=== PATIENT | female | born 1960 | race Caucasian/White ===

== ENCOUNTER 2024-08-14 09:00 | Outpatient (RCR) | payer MEDICARE, MEDICAID, SELFPAY ==
[2024-08-05 16:31] LABS: Basophils # (Auto) 0.1 Thou/mm3 (0.0-0.2); Basophils % (Auto) 1 % (0-2.5); Eosinophils # (Auto) 0.4 Thou/mm3 (0.0-0.5); Eosinophils % (Auto) 3 % (0-10); Hematocrit 30.9 % (36.0-46.0); Hemoglobin 10.2 g/dL (12.0-16.0); Immature Granulocytes % (Auto) 7 % (0-0); Immature Granulocytes Auto 0.87 Thou/mm3 (0.00-0.00); Lymphocytes # (Auto) 0.7 Thou/mm3 (1.0-4.8); Lymphocytes % (Auto) 5 % (10-50); Mean Corpuscular Hemoglobin 29.7 pg (25.0-35.0); Mean Corpuscular Volume 90 fL (80-100); Monocytes # (Auto) 0.7 Thou/mm3 (0.0-0.8); Monocytes % (Auto) 5 % (0-12); Neutrophils # (Auto) 10.3 Thou/mm3 (1.8-7.7); Neutrophils % (Auto) 79 % (37-80); Nucleated Red Blood Cell # 0.02 Thou/mm3 (0.00-0.00); Nucleated Red Blood Cell % 0 /100 WBC (0); Platelet Count 169 Thou/mm3 (140-440); RDW Standard Deviation 49.1 fL (36.4-46.3); Red Blood Count 3.44 Miln/mm3 (4.00-5.20); White Blood Count 12.9 Thou/mm3 (3.6-11.0)
[2024-08-05 17:16] LABS: Alanine Aminotransferase < 7 U/L (10-49); Albumin, Serum 4.5 gm/dL (3.4-4.8); Albumin/Globulin Ratio 2.3 (1.2-2.2); Alkaline Phosphatase 95 U/L (46-116); Anion Gap 8 (7-16); Aspartate Amino Transferase 12 U/L (0-34); BUN/Creatinine Ratio 14 Ratio (12-20); Bilirubin,Total 0.2 mg/dL (0.3-1.2); Blood Urea Nitrogen 11 mg/dL (9-23); Calcium 9.6 mg/dL (8.3-10.6); Calcium (Corrected) 9.6 mg/dL (8.5-10.1); Carbon Dioxide 24.2 mMol/L (20.0-31.0); Chloride 104 mMol/L (98-107); Creatinine (Component) 0.8 mg/dL (0.6-1.3); Glucose 98 mg/dL (74-106); Osmolality,Calculated 271 (275-295); Potassium 3.5 mMol/L (3.4-5.1); Sodium 136 mMol/L (136-145); Total Protein 6.5 gm/dL (5.7-8.2); eGFR > 60 See Note
[2024-08-13 14:45] LABS: Basophils # (Auto) 0.1 Thou/mm3 (0.0-0.2); Basophils % (Auto) 1 % (0-2.5); Eosinophils # (Auto) 0.2 Thou/mm3 (0.0-0.5); Eosinophils % (Auto) 3 % (0-10); Hematocrit 32.7 % (36.0-46.0); Hemoglobin 11.2 g/dL (12.0-16.0); Immature Granulocytes % (Auto) 1 % (0-0); Immature Granulocytes Auto 0.05 Thou/mm3 (0.00-0.00); Lymphocytes # (Auto) 0.5 Thou/mm3 (1.0-4.8); Lymphocytes % (Auto) 7 % (10-50); Mean Corpuscular HGB Conc 34.3 g/dl (31.0-37.0); Mean Corpuscular Volume 88 fL (80-100); Monocytes # (Auto) 0.7 Thou/mm3 (0.0-0.8); Monocytes % (Auto) 9 % (0-12); Neutrophils % (Auto) 81 % (37-80); Nucleated Red Blood Cell % 0 /100 WBC (0); Platelet Count 226 Thou/mm3 (140-440); RDW Standard Deviation 49.4 fL (36.4-46.3); Red Blood Count 3.73 Miln/mm3 (4.00-5.20); White Blood Count 7.4 Thou/mm3 (3.6-11.0)
[2024-08-13 15:13] LABS: Ferritin 112 ng/mL (7.3-270.7); Total Iron Binding Capacity 286 mcg/dL (250-425)
[2024-08-13 15:18] LABS: Alanine Aminotransferase 10 U/L (10-49); Albumin, Serum 4.5 gm/dL (3.4-4.8); Alkaline Phosphatase 69 U/L (46-116); Anion Gap 6 (7-16); Aspartate Amino Transferase 14 U/L (0-34); BUN/Creatinine Ratio 26 Ratio (12-20); Bilirubin,Total 0.3 mg/dL (0.3-1.2); Blood Urea Nitrogen 18 mg/dL (9-23); Calcium 9.7 mg/dL (8.3-10.6); Calcium (Corrected) 9.7 mg/dL (8.5-10.1); Carbon Dioxide 28.1 mMol/L (20.0-31.0); Chloride 104 mMol/L (98-107); Creatinine (Component) 0.7 mg/dL (0.6-1.3); Globulin 2.3 gm/dL (2.3-3.5); Glucose 125 mg/dL (74-106); Osmolality,Calculated 278 (275-295); Potassium 3.9 mMol/L (3.4-5.1); Sodium 138 mMol/L (136-145); Total Protein 6.8 gm/dL (5.7-8.2); eGFR > 60 See Note
[2024-08-13 15:22] LABS: Iron 56 mcg/dL (50-170); Percent Iron Saturation 19 % (20-55); Unsaturated Iron Binding 230 (225-295)
[2024-08-13 15:31] LABS: Folate 22.09 ng/mL (>5.38); Vitamin B12 > 2000 pg/mL (211-911)
== END 2024-08-22 23:59 | disposition home or self-care (01) ==
LOC: SCTC 09:00
PROVIDERS: PCP Nurse Practitioner Family; Referring Provider Nurse Practitioner Family; Visit Provider Internal Medicine Hematology & Oncology
DX: Z51.11 Encounter for antineoplastic chemotherapy (principal); C54.1 Malignant neoplasm of endometrium; C78.02 Secondary malignant neoplasm of left lung; C78.01 Secondary malignant neoplasm of right lung; Z90.710 Acquired absence of both cervix and uterus; Z90.722 Acquired absence of ovaries, bilateral
CPT/HCPCS: 36591; 71046; 80053; 82607; 82728; 82746; 83540; 83550; 85025; 86304; 96367; 96372; 96409; 99212; A4216; J1100; J1453; J1642; J2405; J2506; J3490; J9000; Q5111; G0463

== ENCOUNTER → 2024-09-02 | Outpatient (CLI) | payer MEDICARE, MEDICAID, SELFPAY ==
--- NOTE | 2024-09-02 14:30 | ECHO_ITS ---
Transthoracic Echo Report Ht (in): 63 Wt (lb): 112 Exam Location: Echo Lab Status: Preadmit Retail Merchandising Manager: Yenni Dover Indications: Procedure Performed: BP: / HR: Rhythm: Sinus Technical Quality: Fair MEASUREMENTS (Male / Female) Normal Values 2D ECHO LV Diastolic Diameter PLAX 3.4 cm 4.2 - 5.9 / 3.9 - 5.3 cm LV Systolic Diameter PLAX 2.6 cm IVS Diastolic Thickness 1.0 cm 0.6 - 1.0 / 0.6 - 0.9 cm LVPW Diastolic Thickness 0.8 cm 0.6 - 1.0 / 0.6 - 0.9 cm LV Relative Wall Thickness 0.5 LVOT Diameter 1.6 cm LA Volume Index 27.4 cm?/m? 16 - 28 cm?/m? Ascending Aorta Diameter 3.3 cm M-MODE Aortic Root Diameter MM 2.7 cm LA Systolic Diameter MM 3.2 cm LA Ao Ratio MM 1.2 AV Cusp Separation MM 1.7 cm DOPPLER AV Peak Velocity 136.0 cm/s AV Peak Gradient 7.4 mmHg AV Mean Gradient 4.0 mmHg AV Velocity Time Integral 29.2 cm LVOT Peak Velocity 95.3 cm/s LVOT Peak Gradient 3.6 mmHg LVOT Velocity Time Integral 19.3 cm AV Area Cont Eq vti 1.3 cm? AV Area Cont Eq pk 1.4 cm? MV Peak Velocity 83.2 cm/s MV Peak Gradient 2.8 mmHg MV Mean Velocity 52.5 cm/s MV Mean Gradient 1.0 mmHg MV Area PHT 3.1 cm? Mitral E Point Velocity 66.9 cm/s Mitral A Point Velocity 70.3 cm/s Mitral E to A Ratio 1.0 LV E' Lateral Velocity 9.4 cm/s Mitral E to LV E' Lateral Ratio 7.1 LV E' Septal Velocity 4.3 cm/s Mitral E to LV E' Septal Ratio 15.4 TR Peak Velocity 160.0 cm/s TR Peak Gradient 10.2 mmHg FINDINGS Left Ventricle Normal left ventricular size, wall thickness, systolic function with no obvious regional wall motion abnormalities. The ejection fraction is visually estimated at 55-60 %. Right Ventricle The right ventricle is normal in size and systolic function. The estimated right ventricular systoli c pressure, 15mmHg. RAP 5. Left Atrium The left atrium is normal by two-dimensional, color flow and Doppler imaging with no structural abnormalities, no thrombus formation present. Right Atrium The right atrium is normal by two-dimensional imaging, color flow and Doppler imaging with no struct ural abnormalities, no thrombus formation present. Atrial Septum The interatrial septum appears normal with no evidence of a shunt. Aorta The aorta is normal by two-dimensional, color flow and Doppler interrogation. Mitral Valve The mitral valve is normal by two-dimensional, color flow and Doppler interrogation. There is trace mitral valve regurgitation. Aortic Valve The aortic valve is trileaflet and normal by two-dimensional, color flow and Doppler interrogation. There is trace aortic valve regurgitation. Tricuspid Valve The tricuspid valve is normal by two-dimensional, color flow and Doppler interrogation. There is tra ce tricuspid valve regurgitation. Pulmonic Valve The pulmonic valve is normal by two-dimensional, color flow and Doppler interrogation. There is trac e pulmonic valve regurgitation. Vessels The pulmonary artery appears normal. The inferior vena cava pulmonary and hepatic veins appear alvin l. Pericardium The pericardium is normal by two-dimensional imaging. There is no significant pericardial effusion. CONCLUSIONS Indication: Malignant neoplasm corpus uteri Normal LV size and function. Stgae I diastolic dysfunction. Estimated EF 55-60% Normal RV size and function Trace MR,AI, TR, PI. Anthony Jeffers (Electronically Signed) Final Date: 03 September 2024 05:52
== END | disposition home or self-care (01) ==
PROVIDERS: PCP Student in an Organized Health Care Education/Training Program; Referring Provider Internal Medicine Hematology & Oncology; Visit Provider Internal Medicine Hematology & Oncology
DX: I08.3 Combined rheumatic disorders of mitral, aortic and tricuspid valves (principal); C54.9 Malignant neoplasm of corpus uteri, unspecified
CPT/HCPCS: 93306

== ENCOUNTER → 2024-09-08 | Outpatient (CLI) | payer MEDICARE, MEDICAID, SELFPAY ==
--- NOTE | 2024-09-08 12:01 | XR_ITS ---
Examination: PA lateral chest 2 views TECHNIQUE: Upright PA lateral chest 2 views Exam date and time: September 08, 2024 1244 hours Comparison August 06, 2024 INDICATIONS: Diagnosis malignant neoplasm uterus FINDINGS: Numerous bilateral poorly defined pulmonary nodular densities Normal heart size Right internal jugular Port-A-Cath tip satisfactory position IMPRESSION: Pulmonary nodular metastatic disease Consider repeat CT chest without contrast to compare with the April 30, 2024 exam
== END | disposition home or self-care (01) ==
PROVIDERS: PCP Student in an Organized Health Care Education/Training Program; Referring Provider Radiology Therapeutic Radiology; Visit Provider Radiology Therapeutic Radiology
DX: C78.00 Secondary malignant neoplasm of unspecified lung (principal); C54.9 Malignant neoplasm of corpus uteri, unspecified; C79.51 Secondary malignant neoplasm of bone
CPT/HCPCS: 71046

== ENCOUNTER 2024-09-22 10:09 | Outpatient (RCR) | payer MEDICARE, MEDICAID, SELFPAY ==
[2024-09-02 15:30] LABS: Basophils # (Auto) 0.1 Thou/mm3 (0.0-0.2); Basophils % (Auto) 1 % (0-2.5); Eosinophils # (Auto) 0.3 Thou/mm3 (0.0-0.5); Eosinophils % (Auto) 4 % (0-10); Hematocrit 30.5 % (36.0-46.0); Hemoglobin 10.5 g/dL (12.0-16.0); Immature Granulocytes % (Auto) 1 % (0-0); Immature Granulocytes Auto 0.06 Thou/mm3 (0.00-0.00); Lymphocytes # (Auto) 0.7 Thou/mm3 (1.0-4.8); Lymphocytes % (Auto) 9 % (10-50); Mean Corpuscular HGB Conc 34.4 g/dl (31.0-37.0); Mean Corpuscular Hemoglobin 30.2 pg (25.0-35.0); Mean Corpuscular Volume 88 fL (80-100); Monocytes # (Auto) 0.7 Thou/mm3 (0.0-0.8); Monocytes % (Auto) 10 % (0-12); Neutrophils # (Auto) 5.4 Thou/mm3 (1.8-7.7); Neutrophils % (Auto) 76 % (37-80); Nucleated Red Blood Cell % 0 /100 WBC (0); Platelet Count 205 Thou/mm3 (140-440); RDW Standard Deviation 50.9 fL (36.4-46.3); Red Blood Count 3.48 Miln/mm3 (4.00-5.20); White Blood Count 7.1 Thou/mm3 (3.6-11.0)
[2024-09-02 16:00] LABS: Alanine Aminotransferase 8 U/L (10-49); Albumin, Serum 4.8 gm/dL (3.4-4.8); Albumin/Globulin Ratio 2.4 (1.2-2.2); Alkaline Phosphatase 73 U/L (46-116); Anion Gap 8 (7-16); Aspartate Amino Transferase 11 U/L (0-34); BUN/Creatinine Ratio 18 Ratio (12-20); Bilirubin,Total 0.3 mg/dL (0.3-1.2); Blood Urea Nitrogen 14 mg/dL (9-23); Carbon Dioxide 27.4 mMol/L (20.0-31.0); Chloride 100 mMol/L (98-107); Creatinine (Component) 0.8 mg/dL (0.6-1.3); Glucose 85 mg/dL (74-106); Osmolality,Calculated 269 (275-295); Sodium 135 mMol/L (136-145); Total Protein 6.8 gm/dL (5.7-8.2); eGFR > 60 See Note
[2024-09-22 10:39] LABS: Basophils # (Auto) 0.1 Thou/mm3 (0.0-0.2); Basophils % (Auto) 1 % (0-2.5); Eosinophils # (Auto) 0.3 Thou/mm3 (0.0-0.5); Eosinophils % (Auto) 5 % (0-10); Hematocrit 31.6 % (36.0-46.0); Hemoglobin 10.8 g/dL (12.0-16.0); Immature Granulocytes % (Auto) 1 % (0-0); Immature Granulocytes Auto 0.03 Thou/mm3 (0.00-0.00); Lymphocytes # (Auto) 0.5 Thou/mm3 (1.0-4.8); Lymphocytes % (Auto) 8 % (10-50); Mean Corpuscular HGB Conc 34.2 g/dl (31.0-37.0); Mean Corpuscular Hemoglobin 30.7 pg (25.0-35.0); Mean Corpuscular Volume 90 fL (80-100); Monocytes # (Auto) 0.6 Thou/mm3 (0.0-0.8); Monocytes % (Auto) 10 % (0-12); Neutrophils # (Auto) 4.5 Thou/mm3 (1.8-7.7); Neutrophils % (Auto) 76 % (37-80); Nucleated Red Blood Cell % 0 /100 WBC (0); Platelet Count 201 Thou/mm3 (140-440); RDW Standard Deviation 50.8 fL (36.4-46.3); Red Blood Count 3.52 Miln/mm3 (4.00-5.20); White Blood Count 5.9 Thou/mm3 (3.6-11.0)
[2024-09-22 11:12] LABS: Alanine Aminotransferase < 7 U/L (10-49); Albumin, Serum 4.8 gm/dL (3.4-4.8); Albumin/Globulin Ratio 2.3 (1.2-2.2); Alkaline Phosphatase 77 U/L (46-116); Anion Gap 8 (7-16); Aspartate Amino Transferase 12 U/L (0-34); BUN/Creatinine Ratio 23 Ratio (12-20); Bilirubin,Total 0.4 mg/dL (0.3-1.2); Blood Urea Nitrogen 18 mg/dL (9-23); Calcium 10.2 mg/dL (8.3-10.6); Calcium (Corrected) 10.2 mg/dL (8.5-10.1); Carbon Dioxide 27.7 mMol/L (20.0-31.0); Chloride 102 mMol/L (98-107); Creatinine (Component) 0.8 mg/dL (0.6-1.3); Globulin 2.1 gm/dL (2.3-3.5); Glucose 92 mg/dL (74-106); Osmolality,Calculated 277 (275-295); Potassium 3.7 mMol/L (3.4-5.1); Sodium 138 mMol/L (136-145); Total Protein 6.9 gm/dL (5.7-8.2); eGFR > 60 See Note
== END 2024-09-22 23:59 | disposition home or self-care (01) ==
LOC: SCTC 10:09
PROVIDERS: Internal Medicine Hematology & Oncology; PCP Physician Assistant; Referring Provider Physician Assistant; Visit Provider Radiology Therapeutic Radiology
DX: Z51.11 Encounter for antineoplastic chemotherapy (principal); C54.1 Malignant neoplasm of endometrium; C78.02 Secondary malignant neoplasm of left lung; C79.51 Secondary malignant neoplasm of bone; Z92.3 Personal history of irradiation; R05.9 Cough, unspecified
CPT/HCPCS: 36591; 80053; 85025; 86304; 96367; 96372; 96413; 99213; A4216; J1100; J1453; J1642; J2405; J2506; J3490; J7040; J9000; G0463

== ENCOUNTER 2024-10-07 13:28 | Outpatient (RCR) | payer MEDICARE, MEDICAID, SELFPAY ==
[2024-10-06 14:54] LABS: Basophils # (Auto) 0.1 Thou/mm3 (0.0-0.2); Basophils % (Auto) 1 % (0-2.5); Eosinophils # (Auto) 0.3 Thou/mm3 (0.0-0.5); Eosinophils % (Auto) 3 % (0-10); Hematocrit 29.5 % (36.0-46.0); Immature Granulocytes % (Auto) 6 % (0-0); Lymphocytes # (Auto) 0.5 Thou/mm3 (1.0-4.8); Lymphocytes % (Auto) 4 % (10-50); Mean Corpuscular HGB Conc 33.9 g/dl (31.0-37.0); Mean Corpuscular Hemoglobin 30.6 pg (25.0-35.0); Mean Corpuscular Volume 90 fL (80-100); Monocytes # (Auto) 0.9 Thou/mm3 (0.0-0.8); Monocytes % (Auto) 8 % (0-12); Neutrophils # (Auto) 9.6 Thou/mm3 (1.8-7.7); Neutrophils % (Auto) 79 % (37-80); Nucleated Red Blood Cell # 0.02 Thou/mm3 (0.00-0.00); Nucleated Red Blood Cell % 0 /100 WBC (0); Platelet Count 127 Thou/mm3 (140-440); RDW Standard Deviation 49.6 fL (36.4-46.3); Red Blood Count 3.27 Miln/mm3 (4.00-5.20); White Blood Count 12.1 Thou/mm3 (3.6-11.0)
[2024-10-06 18:28] LABS: Albumin, Serum 4.8 gm/dL (3.4-4.8); Albumin/Globulin Ratio 2.3 (1.2-2.2); Alkaline Phosphatase 98 U/L (46-116); Anion Gap 9 (7-16); Aspartate Amino Transferase 12 U/L (0-34); BUN/Creatinine Ratio 19 Ratio (12-20); Bilirubin,Total 0.3 mg/dL (0.3-1.2); Blood Urea Nitrogen 15 mg/dL (9-23); Calcium 9.7 mg/dL (8.3-10.6); Calcium (Corrected) 9.7 mg/dL (8.5-10.1); Chloride 101 mMol/L (98-107); Creatinine (Component) 0.8 mg/dL (0.6-1.3); Globulin 2.1 gm/dL (2.3-3.5); Glucose 88 mg/dL (74-106); Osmolality,Calculated 273 (275-295); Sodium 137 mMol/L (136-145); Total Protein 6.9 gm/dL (5.7-8.2); eGFR > 60 See Note
[2024-10-07 06:16] LABS: Alanine Aminotransferase 9 U/L (10-49)
--- NOTE | 2024-10-07 15:36 | CTCFLWUP_ITS ---
Patient: KATRINA FELDMAN : 1960 Page 2 of 2 FOLLOW UP NOTE DATE OF SERVICE: 10/07/2024 NAME: KATRINA FELDMAN ACCOUNT: [id number] : 1960 AGE: 64 INTERVAL HISTORY: Patient is doing well and have gained some weight. 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 Status post total abdominal hysterectomy a nd bilateral salpingo-oophorectomy, pelvic and aortic lymphadenectomy (07/26/2021). Biopsy of the vaginal mass positive for carcinosarcoma (09/13/2021) S/p 4 cycles of carboplatin and T axol (01/23/2022 - 04/10/2022) S/p right lung hypermetabolic pulmonary nodule biopsy negative for malign aicha (12/20/2021) Was on weekly carboplatin and Taxol (01/15/2023?06/27/2023). Last S/p radiation therap y to the right sacrum (02/04/2023 - 02/13/2023) S/p radiation therapy to the pelvis (11/20/2021?12/22/2021 ) Radiation of the sacral boost 02/26/2024? Progressed on lenvatinib and pembrolizumab. (04/02/2024 - ) B12 deficiency. Localized radiation to the sacrum SBRT completed in May 2024 Plan is on single agent Doxil DATE OF DIAGNOSIS: 05/26/2021 STAGE/TNM: Stage IV TREATMENT HISTORY: Care?Plan Start?Date Cycle Day Intent CARBOplatin?AUC?6;?PACLitaxel?175 01/23/2022 1 21 Curative?(primary) B?12 11/09/2021 1 28 Palliative PACLItaxel?60mg/m*2?+?Carboplatin?AUC?2?-weekly?x?18weeks?2 01/15/2023 1 7 Palliative Pembro?and?Lenvatinib 04/02/2024 1 21 Palliative Doxil?60/m2?sarcoma?shek 06/25/2024 1 21 Palliative HISTORY OF PRESENT ILLNESS: Katrina Feldman is a 64-year-old ENG speaking female without any significant past medical his tory has the following oncology history. 2016: Patient started having intermittent vaginal bleeding which over last 5 years has steadily worse raquel. Apparently patient was seeing multiple physicians according to her. 06/15/2021: Dr. Rodriguez did endometrial biopsy. 07/26/2021: Ms. Feldman had total abdominal hysterectomy, bilateral salpingo-oophorectomy, left uretero lysis, bilateral pelvic and aortic lymphadenectomy by Dr. Pelon Hassan in [place]. 09/13/2021:The patient had pelvic examination under anesthesia and biopsy of the vaginal mass 11/11/2021: PET/CT scan? 11/20/2021?12/22/2021: Ms. Feldman had 4500 cGy radiation therapy to the pelvis. 12/20/2021: CT-guided biopsy of the right lung hypermetabolic pulmonary nodule 01/23/2022: Patient is started on carboplatin and paclitaxel chemotherapy. 02/10/2022: CT scan of the chest abdomen and pelvis with IV contrast?numerous metastatic pulmonary nod ules. No abdominal or pelvic lymphadenopathy. 01/23/2022?04/10/2022: Ms. Feldman had 4 cycles of carboplatin and Taxol. She decided to discontinue margie motherapy. 11/17/2022: CT scan of the abdomen and pelvis with IV contrast 12/13/2022: PET/CT scan? 01/15/2023: Ms. Feldman is started on weekly carboplatin and Taxol. Ms. Feldman received last dose of c arboplatin on 03/14/2023. Carboplatin was discontinued due to national short supply. Patient was con tinued on single agent Taxol. 04/17/2023: CT scan of the chest without IV contrast and CT scan of the abdomen and pelvis with IV con trast?? 06/26/2023: CT scan of the chest abdomen and pelvis with IV contrast 06/27/2023: The patient received last dose of weekly Taxol. 11/27/2023: CT scan of the chest abdomen and pelvis with IV contrast 01/31/2024: MRI of the pelvis with IV contrast 02/27/2024: PET/CT scan 03/04/2024: Lenvima 10 mg p.o. twice daily prescribed. Patient is taking Lenvima for 3 days. She sta rted developing loss of voice, weakness as well as dizziness. Patient decided not to take Lenvima an ymore. 04/02/2024: Ms. Feldman received first dose of pembrolizumab. 2023: CT angiogram of the chest done 05/14/2024: Ms. Feldman had last dose of pembrolizumab. 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 Compazine - 10 mg 1 tab three times a day 2. docusate sodium - 100 mg 1 tab As needed 3. Vitamin D (with calcium) - 77-400 mg-unit 1 tab Daily 4. ZOFRAN ODT - 8 mg 1 tab Every 8 Hours Medications Last Reconciled by Fanta Newby MA on 10/07/2024 ALLERGIES: sulfasalazine REVIEW OF SYSTEMS: A complete 14-point review of systems was performed and is negative except as noted in interval histo ry. PHYSICAL EXAMINATION: VITAL SIGNS: Temperature?99.4, B/P?97/63, Oxygen?Saturation?99% Weight?119?lbs (Change?since?10/06/24: ?-0.2?lbs) PAIN: 0 - No pain ECOG Performance Status: 1 - Symptomatic; ambulatory; restricted in strenuous activity GENERAL APPEARANCE: Appears well, in no apparent distress, appropriately interactive. HEENT: Normocephalic, no temporal wasting, normal conjunctiva, no scleral icterus, normal hearing, li ps without lesions, neck normal range of motion. CARDIOVASCULAR: Not assessed. PULMONARY: Normal respiratory effort, no respiratory distress or use of accessory muscles, speaking i n full sentences, no tachypnea. EXTREMITIES: No pedal edema or cyanosis. SKIN: Normal skin appearance. NEUROLOGIC: Alert and oriented x4. PSHYCHIATRIC: Appropriate affect, mood normal, behavior normal, intact thought and speech. 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 Status post total abdominal hysterectomy and bilateral salpingo-oophorectomy, pelvic and aortic lymphadenectomy (07/26/2021). Biopsy of the vaginal mass positive for carcinosarcoma (09/13/2021) Patient treated with 4 cycles of carboplatin Taxol and last 2 cycles were refused by patient Patient completed radiation therapy to the pelvis on 12/22/2021. CT-guided biopsy of the right lung pul monary nodule was negative. Metastatic disease was confirmed in March 2023 at 18 weeks of Taxol was given and last dose was in Jun CT scan of the chest done in November showed pulmonary nodular metastatic disease and patient was starte d on Keytruda with lenvatinib. Patient was unable to tolerate lenvatinib and last dose of Pembro was given in April 2024 Patient received SBRT to the sacrum. Patient previously had received radiation to this area 2 times for palliative reasons Reviewed echocardiogram and is acceptable with ejection fraction 55 to 60% Patient is on Doxil and tolerating well Reviewed echocardiogram from 09/02/2024 and is stable Patient's CA125 is stable at 19-20 I will order PET CT scan to see if patient have stable disease Continue Doxil Patient is requesting back to work paperwork and will allow patient to go back to work. CBC CMP CA125 and PET CT scan RETURN TO CLINIC: Video appointment with Ms. Mcgowance after the PET CT scan in 6 weeks BILLING AND COMPLIANCE: I reviewed external records from providers outside my specialty as summarized above. I spent a total of 50 minutes on this patient?s care on the day of their visit excluding time spent related to any bi lled procedures. This time includes time spent with the patient as well as time spent documenting in the medical record, reviewing patients records and tests, obtaining history, placing orders, communi cating with other healthcare professionals, counseling the patient, family or caregiver, and/or care coordination for the diagnoses above. Electronically Signed by: Eduin Armando MD T: 3:34 PM CC: Pelon?Hetal,? PCP: Pelon Covington Referring: Pelon Covington This document was completed utilizing speech recognition software. Grammatical errors, random word in sertions, pronoun errors, and incomplete sentences are an occasional consequence of this system due t o software limitations, ambient noise, and hardware issues. Any formal questions or concerns about th e content, text or information contained within the body of this dictation should be directly address ed to the provider for clarification.
== END 2024-10-23 23:59 | disposition home or self-care (01) ==
LOC: SCTC 13:28
PROVIDERS: PCP Student in an Organized Health Care Education/Training Program; Referring Provider Student in an Organized Health Care Education/Training Program; Visit Provider Internal Medicine Hematology & Oncology
DX: Z51.11 Encounter for antineoplastic chemotherapy (principal); C54.1 Malignant neoplasm of endometrium; C78.02 Secondary malignant neoplasm of left lung; C78.01 Secondary malignant neoplasm of right lung; Z90.710 Acquired absence of both cervix and uterus; Z90.722 Acquired absence of ovaries, bilateral; Z92.3 Personal history of irradiation
CPT/HCPCS: 36591; 80053; 85025; 86304; 96367; 96372; 96375; 96409; 99212; A4216; J1100; J1453; J1642; J2405; J2506; J9000; G0463

== ENCOUNTER → 2024-10-22 | Outpatient (CLI) | payer MEDICARE, MEDICAID, SELFPAY ==
--- NOTE | 2024-10-22 14:45 | XR_ITS ---
EXAMINATION: PET/CT FUSION SKULL TO THIGH EXAM DATE AND TIME: October 22, 2024 1529 hours Comparison December 13, 2022 INDICATIONS: Diagnosis uterine carcinoma post treatment restaging CTDI:vol (mGy) 2.27 DLP: (mGycm) 207.77 PROCEDURE: 16.44 mCi FDG was administered intravenously To allow for distribution and uptake of radiotracer, the patient was allowed to rest quietly in a shielded room. Imaging was performed on an integrated 16-slice PET/CT scanner, with scanning from the skull base to the mid thigh. Serum blood glucose at the time of the injection was measured 105 mg/dL. CT scanning was performed without oral or intravenous contrast material. FINDINGS: Head and Neck: There is no parul hypermetabolism in the neck. The visualized portions of the brain are normal in appearance on CT. Chest: Interval 12 mm hypermetabolic right paratracheal lymph node Interval 14 mm hypermetabolic right hilar lymph node Interval more numerous and enlarging existing metastatic pulmonary nodules, several of which are weakly hypermetabolic Weakly hypermetabolic mass in the anterior segment left upper lobe 37 mm Abdomen and Pelvis: Interval advanced right hydronephrosis which may be secondary to 28 mm right Aortic hypermetabolic lymphadenopathy Musculoskeletal: Marrow uptake is within normal range. IMPRESSION: Interval hypermetabolic mediastinal lymphadenopathy Interval marked progression of pulmonary nodular metastatic disease Interval advanced right, recommend CT scan abdomen pelvis post intravenous contrast follow-up hydronephrosis which may be secondary to 28 mm right para-aortic lymphadenopathy
== END | disposition home or self-care (01) ==
LOC: CDIM 14:36
PROVIDERS: PCP Student in an Organized Health Care Education/Training Program; Referring Provider Internal Medicine Hematology & Oncology; Visit Provider Internal Medicine Hematology & Oncology
DX: R59.0 Localized enlarged lymph nodes (principal); C78.01 Secondary malignant neoplasm of right lung; C54.9 Malignant neoplasm of corpus uteri, unspecified; C79.51 Secondary malignant neoplasm of bone
CPT/HCPCS: 78815; A9552

== ENCOUNTER → 2024-11-12 | Outpatient (CLI) | payer MEDICARE, MEDICAID, SELFPAY ==
--- NOTE | 2024-11-12 15:21 | XR_ITS ---
Examination: AP pelvis single view Technique one AP portable supine pelvis single view Exam date and time: November 12, 2024 1558 hours INDICATIONS: Pelvic pain 2 weeks. FINDINGS: Moderate osteopenia Mild to moderate narrowing hip joints No acute hip or pelvic fracture No cortical bone destruction IMPRESSION: Mild to moderate narrowing hip joints
== END | disposition home or self-care (01) ==
PROVIDERS: PCP Student in an Organized Health Care Education/Training Program; Referring Provider Radiology Therapeutic Radiology; Visit Provider Radiology Therapeutic Radiology
DX: M25.852 Other specified joint disorders, left hip (principal); M25.851 Other specified joint disorders, right hip; C55 Malignant neoplasm of uterus, part unspecified
CPT/HCPCS: 72170

== ENCOUNTER 2024-11-17 15:02 | Outpatient (RCR) | payer MEDICARE, SELFPAY | END 2024-11-20 23:59 | disposition home or self-care (01) | LOC: SCTC 15:02 | PROVIDERS: PCP Student in an Organized Health Care Education/Training Program; Referring Provider Student in an Organized Health Care Education/Training Program; Visit Provider Radiology Therapeutic Radiology | DX: C54.1 Malignant neoplasm of endometrium (principal); C78.02 Secondary malignant neoplasm of left lung; C78.01 Secondary malignant neoplasm of right lung; C79.51 Secondary malignant neoplasm of bone; Z92.3 Personal history of irradiation; Z92.21 Personal history of antineoplastic chemotherapy | CPT/HCPCS: 99213; G0463 ==

== ENCOUNTER → 2024-12-02 | Outpatient (CLI) | payer MEDICARE, MEDICAID, SELFPAY ==
--- NOTE | 2024-12-02 14:00 | ECHO_ITS ---
Transthoracic Echo Report Ht (in): 63 Wt (lb): 125 Exam Location: Echo Lab Status: Outpatient Solicitor Patent: [id number] Atwood^^^^ Indications: Procedure Performed: BP: 114 / 68 HR: 66 Rhythm: Sinus Technical Quality: Good MEASUREMENTS (Male / Female) Normal Values 2D ECHO LV Diastolic Diameter PLAX 3.9 cm 4.2 - 5.9 / 3.9 - 5.3 cm LV Systolic Diameter PLAX 2.5 cm IVS Diastolic Thickness 0.7 cm 0.6 - 1.0 / 0.6 - 0.9 cm LVPW Diastolic Thickness 0.8 cm 0.6 - 1.0 / 0.6 - 0.9 cm LV Relative Wall Thickness 0.4 LVOT Diameter 1.7 cm Aortic Root Diameter 2.9 cm LA Systolic Diameter LX 2.8 cm 3.0 - 4.0 / 2.7 - 3.8 cm LA Volume Index 22.2 cm?/m? 16 - 28 cm?/m? Ascending Aorta Diameter 3.2 cm DOPPLER AV Peak Velocity 173.0 cm/s AV Peak Gradient 12.0 mmHg AV Mean Gradient 6.0 mmHg AV Velocity Time Integral 35.9 cm LVOT Peak Velocity 84.9 cm/s LVOT Peak Gradient 2.9 mmHg LVOT Velocity Time Integral 24.3 cm LVOT Cardiac Index 2287.5 cm?/min?m? AV Area Cont Eq vti 1.5 cm? AV Area Cont Eq pk 1.1 cm? MV Area PHT 4.8 cm? Mitral E Point Velocity 76.7 cm/s Mitral A Point Velocity 101.0 cm/s Mitral E to A Ratio 0.8 LV E' Lateral Velocity 8.4 cm/s Mitral E to LV E' Lateral Ratio 9.2 LV E' Septal Velocity 5.6 cm/s Mitral E to LV E' Septal Ratio 13.8 TR Peak Velocity 186.0 cm/s TR Peak Gradient 13.8 mmHg PV Peak Velocity 115.0 cm/s PV Peak Gradient 5.3 mmHg RVOT Peak Velocity 55.9 cm/s FINDINGS Left Ventricle Normal left ventricular size, wall thickness, systolic function with no obvious regional wall motion abnormalities. There is grade I diastolic dysfunction of the left ventricle (impaired relaxation pattern). The left ventricular ejection fraction is normal, estimated at 55-60%. Right Ventricle The right ventricle is normal in size and systolic function. The estimated right ventricular systolic pressure, 15 mmHg. Left Atrium The left atrium is normal by two-dimensional, color flow and Doppler imaging with no structural abnormalities, no thrombus formation present. Right Atrium The right atrium is normal by two-dimensional imaging, color flow and Doppler imaging with no structural abnormalities, no thrombus formation present. Atrial Septum The interatrial septum appears normal with no evidence of a shunt. Aorta The aorta is normal by two-dimensional, color flow and Doppler interrogation. Mitral Valve Mild mitral regurgitation. Mild mitral annular calcification. Aortic Valve Aortic valve sclerosis. Tricuspid Valve There is trace tricuspid valve regurgitation. Pulmonic Valve Trivial pulmonic valve regurgitation. Vessels The pulmonary artery appears normal. The inferior vena cava pulmonary and hepatic veins appear normal. Pericardium The pericardium is normal by two-dimensional imaging. There is no significant pericardial effusion. CONCLUSIONS Indication: History of malignant neoplasm Normal LV size and function with an EF of 60 to 65%. Normal RV size and function with normal RVSP. Mild MAC with trace to mild MR and trace TR. Mild aortic valve sclerosis without stenosis Anthony Jeffers (Electronically Signed) Final Date: 02 December 2024 21:59
== END | disposition home or self-care (01) ==
LOC: SDIM 13:34
PROVIDERS: PCP Student in an Organized Health Care Education/Training Program; Referring Provider Internal Medicine Hematology & Oncology; Visit Provider Internal Medicine Hematology & Oncology
DX: I08.3 Combined rheumatic disorders of mitral, aortic and tricuspid valves (principal); C54.9 Malignant neoplasm of corpus uteri, unspecified
CPT/HCPCS: 93306

== ENCOUNTER 2024-12-15 13:29 | Outpatient (RCR) | payer MEDICARE, MEDICAID, SELFPAY ==
[2024-12-14 16:40] LABS: Basophils % (Auto) 1 % (0-2.5); Eosinophils # (Auto) 0.1 Thou/mm3 (0.0-0.5); Eosinophils % (Auto) 3 % (0-10); Hematocrit 32.5 % (36.0-46.0); Hemoglobin 11.1 g/dL (12.0-16.0); Immature Granulocytes % (Auto) 0 % (0-0); Immature Granulocytes Auto 0.01 Thou/mm3 (0.00-0.00); Lymphocytes # (Auto) 0.5 Thou/mm3 (1.0-4.8); Lymphocytes % (Auto) 12 % (10-50); Mean Corpuscular HGB Conc 34.2 g/dl (31.0-37.0); Mean Corpuscular Hemoglobin 29.5 pg (25.0-35.0); Mean Corpuscular Volume 86 fL (80-100); Monocytes # (Auto) 0.3 Thou/mm3 (0.0-0.8); Monocytes % (Auto) 7 % (0-12); Neutrophils # (Auto) 3.1 Thou/mm3 (1.8-7.7); Neutrophils % (Auto) 77 % (37-80); Nucleated Red Blood Cell % 0 /100 WBC (0); Platelet Count 202 Thou/mm3 (140-440); RDW Standard Deviation 38.5 fL (36.4-46.3); Red Blood Count 3.76 Miln/mm3 (4.00-5.20)
[2024-12-14 16:59] LABS: Alanine Aminotransferase 12 U/L (10-49); Albumin, Serum 4.3 gm/dL (3.4-4.8); Alkaline Phosphatase 78 U/L (46-116); Anion Gap 11 (7-16); Aspartate Amino Transferase 12 U/L (0-34); BUN/Creatinine Ratio 17 Ratio (12-20); Bilirubin,Total 0.5 mg/dL (0.3-1.2); Blood Urea Nitrogen 15 mg/dL (9-23); Calcium 9.3 mg/dL (8.3-10.6); Calcium (Corrected) 9.3 mg/dL (8.5-10.1); Carbon Dioxide 23.2 mMol/L (20.0-31.0); Chloride 103 mMol/L (98-107); Creatinine (Component) 0.9 mg/dL (0.6-1.3); Globulin 2.1 gm/dL (2.3-3.5); Glucose 89 mg/dL (74-106); Osmolality,Calculated 273 (275-295); Potassium 3.3 mMol/L (3.4-5.1); Sodium 137 mMol/L (136-145); Total Protein 6.4 gm/dL (5.7-8.2); eGFR > 60 See Note
== END 2024-12-21 23:59 | disposition home or self-care (01) ==
LOC: SCTC 13:29
PROVIDERS: Internal Medicine Hematology & Oncology; PCP Student in an Organized Health Care Education/Training Program; Referring Provider Student in an Organized Health Care Education/Training Program; Visit Provider Radiology Therapeutic Radiology
DX: C54.1 Malignant neoplasm of endometrium (principal); C78.02 Secondary malignant neoplasm of left lung; C78.01 Secondary malignant neoplasm of right lung; C79.51 Secondary malignant neoplasm of bone; N13.30 Unspecified hydronephrosis; K57.92 Diverticulitis of intestine, part unspecified, without perforation or abscess without bleeding; Z90.710 Acquired absence of both cervix and uterus; Z90.722 Acquired absence of ovaries, bilateral
CPT/HCPCS: 36591; 80053; 85025; 86304; 99212; 99213; A4216; J1642; G0463

== ENCOUNTER → 2025-01-12 | Outpatient (CLI) | payer MEDICARE, MEDICAID, SELFPAY ==
--- NOTE | 2025-01-12 14:56 | XR_ITS ---
Examination: CT abdomen with intravenous contrast CT pelvis with intravenous contrast 2-D coronal reconstructions 2-D sagittal reconstructions Date and time of exam:January 12, 2025 1515 hours Comparison PET/CT scan October 22, 2024 INDICATIONS: Advanced right hydronephrosis, abdominal lymphadenopathy, pulmonary nodular metastatic disease mediastinal lymphadenopathy on PET CT scan October 22, 2024, diagnosis uterine carcinoma. CTDI: vol (mGy) 11.9 DLP: (mGycm) 384 Technique: Multiple axial sections of the abdomen and pelvis have been obtained. 64 slice high-resolution scanner used. 3 mm axial sections have been obtained, post intravenous injection 60 cc [id number] 2-D sagittal, coronal reconstructions obtained. Low dose protocols were performed. One or more of the following dose reduction techniques were used; automated exposure control, adjustment of the mA and/or KV according to patient size, use of iterative reconstruction technique. Findings: Partial visualization 26 mm pulmonary nodule in the anterior right lung, multiple additional pulmonary nodules, the largest in the left lung 16 mm, also right lower lobe pulmonary mass 29 mm Descending thoracic aortic adenopathy, 21 mm Small liver cysts No hydronephrosis Spleen not enlarged End-stage large right hydronephrotic sac severe right renal cortical thinning, marked progression of periaortic lymphadenopathy on the current study, AP dimension at least 35 mm Extensive bilateral common iliac and right external iliac lymphadenopathy Urinary bladder wall thickening up to 8 mm and pericystic inflammatory change Severe osteopenia IMPRESSION: Marked progression of pulmonary nodular metastatic disease Marked progression of abdominal and pelvic metastatic lymphadenopathy End stage right hydronephrotic sac with severe right renal cortical thinning
== END | disposition home or self-care (01) ==
LOC: SCAT 14:12
PROVIDERS: PCP Student in an Organized Health Care Education/Training Program; Referring Provider Student in an Organized Health Care Education/Training Program; Visit Provider Student in an Organized Health Care Education/Training Program
DX: R91.1 Solitary pulmonary nodule (principal); C77.5 Secondary and unspecified malignant neoplasm of intrapelvic lymph nodes; C77.2 Secondary and unspecified malignant neoplasm of intra-abdominal lymph nodes; N13.30 Unspecified hydronephrosis
CPT/HCPCS: 74177; A4649; Q9967

== ENCOUNTER 2025-01-16 01:59 | Emergency (ER) | payer MEDICARE, MEDICAID, SELFPAY ==
[2025-01-16 02:15] VITALS: BP 118/79; PULSE 77; RESP 16; TEMP 37.2; O2SAT 95
[2025-01-16] MEDS: HYDROcodone/APAP 5/325 TABLET 1 TAB PO (02:52)
[2025-01-16 03:16] LABS: Lactate (Lactic Acid) 0.8 mMol/L (0.4-2.0)
[2025-01-16 03:21] LABS: Basophils % (Auto) 0 % (0-2.5); Eosinophils # (Auto) 0.1 Thou/mm3 (0.0-0.5); Eosinophils % (Auto) 1 % (0-10); Hematocrit 37.1 % (36.0-46.0); Hemoglobin 13.1 g/dL (12.0-16.0); Immature Granulocytes % (Auto) 0 % (0-0); Immature Granulocytes Auto 0.02 Thou/mm3 (0.00-0.00); Lymphocytes # (Auto) 0.5 Thou/mm3 (1.0-4.8); Lymphocytes % (Auto) 7 % (10-50); Mean Corpuscular HGB Conc 35.3 g/dl (31.0-37.0); Mean Corpuscular Hemoglobin 29.5 pg (25.0-35.0); Mean Corpuscular Volume 84 fL (80-100); Monocytes # (Auto) 0.3 Thou/mm3 (0.0-0.8); Monocytes % (Auto) 4 % (0-12); Neutrophils # (Auto) 6.3 Thou/mm3 (1.8-7.7); Neutrophils % (Auto) 87 % (37-80); Nucleated Red Blood Cell % 0 /100 WBC (0); Platelet Count 223 Thou/mm3 (140-440); RDW Standard Deviation 36.5 fL (36.4-46.3); Red Blood Count 4.44 Miln/mm3 (4.00-5.20); White Blood Count 7.3 Thou/mm3 (3.6-11.0)
[2025-01-16 03:25] LABS: Collection Type, Urine Clean Catch
[2025-01-16 03:39] LABS: Amorphous Crystals,Urine Present (Absent); Bilirubin,Urine Negative (Negative); Blood,Urine Negative (Negative); Clarity,Urine Turbid (Clear/Hazy); Color,Urine Lt-Yellow (Lt Yel-Yel); Glucose, Urine Negative (Negative); Ketones,Urine 3+ (Negative); Leukocyte Esterase,Urine Positive (Negative); Nitrite,Urine Negative (Negative); Protein,Urine Negative (Neg - Trace); RBC,Urine 4 /hpf (0-3); Specific Gravity,Urine 1.017 (1.001-1.035); Squamous Epithelial Cell,Urine < 1 /hpf (0-5); Urobilinogen,Urine Negative mg/dL (0.0-1.0); WBC,Urine 9 /hpf (0-5)
[2025-01-16 03:55] LABS: Alanine Aminotransferase < 7 U/L (10-49); Albumin, Serum 4.8 gm/dL (3.4-4.8); Albumin/Globulin Ratio 1.9 (1.2-2.2); Alkaline Phosphatase 79 U/L (46-116); Anion Gap 8 (7-16); Aspartate Amino Transferase 13 U/L (0-34); BUN/Creatinine Ratio 13 Ratio (12-20); Bilirubin,Total 0.8 mg/dL (0.3-1.2); Blood Urea Nitrogen 10 mg/dL (9-23); Calcium 10.1 mg/dL (8.3-10.6); Calcium (Corrected) 10.1 mg/dL (8.5-10.1); Carbon Dioxide 29.1 mMol/L (20.0-31.0); Chloride 101 mMol/L (98-107); Creatinine (Component) 0.8 mg/dL (0.6-1.3); Estimated Creatinine Clearance 58.2 mL/min (>60); Globulin 2.5 gm/dL (2.3-3.5); Glucose 103 mg/dL (74-106); Lipase 29 U/L (12-53); Osmolality,Calculated 274 (275-295); Potassium 3.7 mMol/L (3.4-5.1); Procalcitonin 0.06 ng/ml (0.0-0.49); Sodium 138 mMol/L (136-145); Total Protein 7.3 gm/dL (5.7-8.2); eGFR > 60 See Note
--- NOTE | 2025-01-16 06:16 | EDNOTE_ITS ---
ED Abdominal Pain RME/HPI General Chief Complaint: Abdominal Pain Stated complaint: LEFT LOWER ABD PAIN Time seen by provider: 01/16/25 02:35 Arrival date/time: 01/16/25 01:59 64F with history of endometrial cancer w/ mets presents to ED with 3 weeks of intermittent L lower ab pain. Patient had CT several days ago with worsening lymphadenopathy. Limitations: no limitations Related Data Home Medications ?Medication ?Instructions ?Recorded ?Confirmed dexamethasone 4 mg tablet 4 tab PO QMONTH 04/22/22 diphenhydramine HCl 50 mg capsule 50 cap PO QMONTH 04/22/22 (Banophen) famotidine 20 mg tablet 20 tab PO QMONTH 04/22/22 ondansetron HCl 8 mg tablet 8 mg PO QMONTH prior to ch emo 04/22/22 04/22/22 treatment Previous Rx's ?Medication ?Instructions ?Recorded lactulose 10 gram/15 mL (15 mL) 20 g (30 mL) PO BID [place] N 11/17/22 oral solution constipation #600 mL Allergies Allergy/AdvReac Type Severity Reaction Status Date / Time Sulfa (Sulfonamide Allergy Verified 07/30/24 07:56 Antibiotics) Review of Systems Review of Systems Systems Reviewed: All systems reviewed, normal except as documented Constitutional Constitutional: Reports system reviewed and no additional complaints, except as documented, Denies fever(s) and Denies headache(s) ENT Ears, Nose, Mouth, and Throat: Denies disequilibrium and Denies headache(s) Cardiovascular Cardiovascular: Reports system reviewed and no additional complaints, except as documented, Denies chest pain and Denies dyspnea Respiratory Respiratory: Reports system reviewed and no additional complaints, except as documented, Denies cough and Denies dyspnea Gastrointestinal Gastrointestinal: Reports system reviewed and no additional complaints, except as documented, Reports as per HPI, Reports abdominal pain, Denies nausea and Denies vomiting Neurologic Neurologic: Reports system reviewed and no additional complaints, except as documented, Denies confusion, Denies disequilibrium and Denies headache(s) Psychiatric Psychiatric: Denies confusion Past Medical History Past Medical History NEUROLOGIC: Positive Seizures CARDIAC: Negative Cardiac Disorders or Congestive Heart Failure RESPIRATORY: Positive Asthma; Negative Chronic Obstructive Pulmonary Disease (COPD) GASTROINTESTINAL: Negative Gastrointestinal Disorders GENITOURINARY: Negative Genitourinary Disorders or Renal Disease REPRODUCTIVE: Positive Endometriosis and Previous Pregnancies MUSCULOSKELETAL: Negative Musculoskeletal Disorders ENDOCRINE: Negative Endocrine Disorders, Diabetes Mellitus Type 1 or Diabetes Mellitus Type 2 HEMATOLOGIC: Positive Anemia; Negative Sickle Cell Disease OTHER HISTORY: Positive Hospitalization, Chemotherapy, Radiation Therapy, Chicken Pox, Mumps, Cancer and Lung Cancer Family History FAMILY HISTORY: Positive Family Respiratory Disorders and Family Cancer Surgical History SURGICAL: Positive Hysterectomy, Tubal Ligation and Section Social History SMOKING STATUS: Never smoker SUBSTANCE USE: does not use ED Exam General Limitations: Present no limitations General appearance: Present alert and in no apparent distress Head Head exam: Present atraumatic Eye Eye exam: Present normal appearance, PERRL and EOMI ENT ENT exam: Present normal exam, normal oropharynx and mucous membranes moist Neck Neck exam: Present normal inspection, full ROM and trachea midline Chest Chest inspection: Present normal inspection and symmetric chest wall rise Respiratory Respiratory exam: Present normal lung sounds bilaterally Cardiovascular Cardiovascular exam: Present regular rate, normal rhythm and normal heart sounds Abdominal Exam Abdominal exam: Present soft and normal bowel sounds Extremities Exam Extremities exam: Present normal inspection and full ROM Back Exam Back exam: Present normal inspection and full ROM Neurological Exam Neurological exam: Present alert, oriented X3 and CN II-XII intact Psychiatric Psychiatric exam: Present normal affect and normal mood Skin Skin exam: Present warm, dry, intact and normal color Course Quality Measures none Orders Category Date Time Status CBC Stat Lab 01/16/25 03:01 Completed CMP [Comprehensive Metabolic Panel] Stat Lab 01/16/25 03:01 Completed Lactate (Lactic Acid) Stat Lab 01/16/25 03:01 Completed Lipase Stat Lab 01/16/25 03:01 Completed Procalcitonin Stat Lab 01/16/25 03:01 Completed Urinalysis Stat Lab 01/16/25 03:16 Completed HYDROcodone*/APAP 5/325 [[place] 5/325] Med 01/16/25 02:36 Discontinued 1 tab PO X1 ONE Vital Signs Vital signs: Vital Signs Temperature 98.9 F 01/16/25 02:15 Pulse Rate 77 01/16/25 02:15 Respiratory Rate 16 01/16/25 02:15 Blood Pressure 118/79 01/16/25 02:15 Pulse Oximetry (%) 95 01/16/25 02:15 Oxygen Delivery Method Room Air 01/16/25 02:15 O2 at 95% on RA and WNLs Abdominal Pain MDM MDM Narrative MDM Narrative:: 64F with history of endometrial cancer w/ mets presents to ED with 3 weeks of intermittent L lower ab pain. Patient had CT several days ago with worsening lymphadenopathy. Patient was most concerned about R kidney thinning. Physical exam reveals no ab tenderness. Patient is afebrile, calm, and alert. No leukocytosis. CMP unremarkable. Procal/lactate normal. Cr normal. Meds improved pain. UA some dehydration. Labor Delivery Specialist given. Patient states she will follow-up with oncologist. Patient declines IVF. Patient data External records reviewed:: [facility] previous records Clinical information provided by:: patient Social determinants that could affect healthcare access:: none Patient has the following chronic illnesses:: endometrial cancer How is presenting disease/condition affected by chronic disease/condition?: caused by Evaluation data The following diagnostics were reviewed and interpreted by me:: lab results Lab and/or radiology exams considered but not ordered:: ordered Interpretation Summary: above Medications / Prescriptions Medications or Prescriptions considered but not ordered:: ordered Medication administrations:: Medication Administration History Discontinued Medications Hydrocodone Bitart/Acetaminophen (Hydrocodone/[place] 5/325 Tablet) 1 tab PO X1 ONE Stop: 01/16/25 02:37 Last Admin: 01/16/25 02:52 Dose: 1 tab Documented By: KF above Consultations Consultation(s) initiated? (list below): No Diagnosis Differential diagnosis abdominal pain: abdominal pain, acute appendicitis, calculus of kidney, constipation, diverticulitis, endometriosis, gastroenteritis, pancreatitis, small bowel obstruction and other (cancer related pain) Most likely diagnosis given after review of the tests above:: cancer related pain Admission Indicated Admission indicated?: not indicated Admission Request Was there a request for admission?: No Disposition Plan Disposition Plan: Discharge Discharge Attestation Discharge Attestation: The patient and all family members were given an opportunity to ask questions and understood the discharge instructions. Discharge instructions specifically effects, indications for sooner follow up or return to the emergency department, and the expected course of current diagnosis. Patient condition: Stable Discharge Plan Plan Patient Disposition: HOME (Self Care) Disposition Comment: Stable Prescriptions/Referrals Prescriptions/Med Rec: No Action famotidine 20 mg tablet 20 tab PO QMONTH Patient Comments: TAKE 1 TABLET BY MOUTH 12 HOURS AND 1 TABLET 6 HOURS BEFORE CHEMO Rx Instructions: taken prior to chemo treatment. diphenhydramine HCl [Banophen] 50 mg capsule 50 cap PO QMONTH Patient Comments: TAKE 1 CAPSULE BY MOUTH 12 HOURS BEFORE AND 1 CAPSULE 6 HOURS BEFORE CHEMO Rx Instructions: taken prior to chemo treatment. ondansetron HCl 8 mg tablet 8 mg PO QMONTH Patient Comments: TAKE 1 TABLET BY MOUTH THREE TIMES A DAY NEEDED FOR NAUSEA Rx Instructions: taken prior to chemo treatment. dexamethasone 4 mg tablet 4 tab PO QMONTH Patient Comments: TAKE 5 TABLETS BY MOUTH 12 HOURS BEFORE AND 5 TABLETS 6 HOURS BEFORE CHEMO Rx Instructions: taken prior to chemo treatment. lactulose 10 gram/15 mL (15 mL) solution 20 g PO BID PRN (Reason: constipation) Qty: 600 0RF Referrals: Pelon Covington MD [Primary Care Provider] - In 1 week Problem List Clinical Impression: Cancer related pain Patient/Caregiver Discharge Instructions Education Materials: ED Pain Management: Chronic Additional Instructions: Please follow-up with PCP within 24-48 hours and return immediately if symptoms worsen. Follow-up with oncologist on Saturday. Print Language: Bulgarian Stand Alone Forms: Patient Portal Info Letter DENISE/EDMUND Supervising Physician DENISE/EDMUND Supervising Physician: Dr. Moffett
== END 2025-01-16 04:24 | disposition home or self-care (01) ==
PROVIDERS: Physician Assistant; Emergency Provider Emergency Medicine; PCP Student in an Organized Health Care Education/Training Program
DX: G89.3 Neoplasm related pain (acute) (chronic) (principal); C54.1 Malignant neoplasm of endometrium; C79.9 Secondary malignant neoplasm of unspecified site
CPT/HCPCS: 36415; 80053; 81001; 83605; 83690; 84145; 85025; 99283; A9270

== ENCOUNTER 2025-01-20 14:57 | Outpatient (RCR) | payer MEDICARE, MEDICAID, SELFPAY ==
[2025-01-18 16:07] LABS: Basophils % (Auto) 1 % (0-2.5); Eosinophils # (Auto) 0.1 Thou/mm3 (0.0-0.5); Eosinophils % (Auto) 2 % (0-10); Hematocrit 34.9 % (36.0-46.0); Immature Granulocytes % (Auto) 0 % (0-0); Immature Granulocytes Auto 0.02 Thou/mm3 (0.00-0.00); Lymphocytes # (Auto) 0.4 Thou/mm3 (1.0-4.8); Lymphocytes % (Auto) 7 % (10-50); Mean Corpuscular HGB Conc 34.4 g/dl (31.0-37.0); Mean Corpuscular Hemoglobin 28.9 pg (25.0-35.0); Mean Corpuscular Volume 84 fL (80-100); Monocytes # (Auto) 0.3 Thou/mm3 (0.0-0.8); Monocytes % (Auto) 5 % (0-12); Neutrophils # (Auto) 4.8 Thou/mm3 (1.8-7.7); Neutrophils % (Auto) 85 % (37-80); Nucleated Red Blood Cell % 0 /100 WBC (0); Platelet Count 200 Thou/mm3 (140-440); RDW Standard Deviation 36.6 fL (36.4-46.3); Red Blood Count 4.15 Miln/mm3 (4.00-5.20); White Blood Count 5.7 Thou/mm3 (3.6-11.0)
[2025-01-18 16:40] LABS: Alanine Aminotransferase < 7 U/L (10-49); Albumin, Serum 4.4 gm/dL (3.4-4.8); Alkaline Phosphatase 71 U/L (46-116); Anion Gap 8 (7-16); Aspartate Amino Transferase 15 U/L (0-34); BUN/Creatinine Ratio 19 Ratio (12-20); Bilirubin,Total 0.6 mg/dL (0.3-1.2); Blood Urea Nitrogen 15 mg/dL (9-23); Calcium 9.7 mg/dL (8.3-10.6); Calcium (Corrected) 9.7 mg/dL (8.5-10.1); Carbon Dioxide 29.4 mMol/L (20.0-31.0); Chloride 102 mMol/L (98-107); Creatinine (Component) 0.8 mg/dL (0.6-1.3); Globulin 2.2 gm/dL (2.3-3.5); Glucose 100 mg/dL (74-106); Osmolality,Calculated 278 (275-295); Potassium 3.8 mMol/L (3.4-5.1); Sodium 139 mMol/L (136-145); Thyroid Stimulating Hormone 4.15 uIU/mL (0.55-4.78); Total Protein 6.6 gm/dL (5.7-8.2); eGFR > 60 See Note
== END 2025-01-20 23:59 | disposition home or self-care (01) ==
LOC: SCTC 14:57
PROVIDERS: Internal Medicine Hematology & Oncology; PCP Student in an Organized Health Care Education/Training Program; Referring Provider Student in an Organized Health Care Education/Training Program; Visit Provider Radiology Therapeutic Radiology
DX: Z51.11 Encounter for antineoplastic chemotherapy (principal); C54.1 Malignant neoplasm of endometrium; C78.02 Secondary malignant neoplasm of left lung; C78.01 Secondary malignant neoplasm of right lung; Z92.3 Personal history of irradiation
CPT/HCPCS: 36591; 80053; 84443; 85025; 86304; 96367; 96372; 96409; A4216; J1100; J1453; J1642; J2405; J2506; J3490; J7050; J9000

== ENCOUNTER 2025-02-17 11:04 | Outpatient (RCR) | payer MEDICARE, MEDICAID, SELFPAY ==
[2025-02-08 16:54] LABS: Basophils # (Auto) 0.1 Thou/mm3 (0.0-0.2); Basophils % (Auto) 1 % (0-2.5); Eosinophils % (Auto) 0 % (0-10); Hematocrit 28.4 % (36.0-46.0); Immature Granulocytes % (Auto) 1 % (0-0); Immature Granulocytes Auto 0.05 Thou/mm3 (0.00-0.00); Lymphocytes # (Auto) 0.5 Thou/mm3 (1.0-4.8); Lymphocytes % (Auto) 7 % (10-50); Mean Corpuscular HGB Conc 35.2 g/dl (31.0-37.0); Mean Corpuscular Volume 82 fL (80-100); Monocytes # (Auto) 0.7 Thou/mm3 (0.0-0.8); Monocytes % (Auto) 10 % (0-12); Neutrophils # (Auto) 5.5 Thou/mm3 (1.8-7.7); Neutrophils % (Auto) 81 % (37-80); Nucleated Red Blood Cell % 0 /100 WBC (0); Platelet Count 185 Thou/mm3 (140-440); RDW Standard Deviation 40.1 fL (36.4-46.3); Red Blood Count 3.45 Miln/mm3 (4.00-5.20); White Blood Count 6.9 Thou/mm3 (3.6-11.0)
[2025-02-08 17:13] LABS: Alanine Aminotransferase 11 U/L (10-49); Albumin, Serum 4.3 gm/dL (3.4-4.8); Alkaline Phosphatase 54 U/L (46-116); Anion Gap 10 (7-16); Aspartate Amino Transferase 16 U/L (0-34); BUN/Creatinine Ratio 19 Ratio (12-20); Bilirubin,Total 0.5 mg/dL (0.3-1.2); Blood Urea Nitrogen 13 mg/dL (9-23); Calcium 9.1 mg/dL (8.3-10.6); Calcium (Corrected) 9.1 mg/dL (8.5-10.1); Carbon Dioxide 26.8 mMol/L (20.0-31.0); Chloride 101 mMol/L (98-107); Creatinine (Component) 0.7 mg/dL (0.6-1.3); Globulin 2.2 gm/dL (2.3-3.5); Glucose 109 mg/dL (74-106); Osmolality,Calculated 276 (275-295); Potassium 3.2 mMol/L (3.4-5.1); Sodium 138 mMol/L (136-145); Total Protein 6.5 gm/dL (5.7-8.2); eGFR > 60 See Note
--- NOTE | 2025-02-17 14:12 | CTCFLWUP_ITS ---
Patient: KATRINA FELDMAN : 1960 Page 2 of 2 FOLLOW UP NOTE DATE OF SERVICE: 02/17/2025 NAME: KATRINA FELDMAN ACCOUNT: [id number] : 1960 AGE: 64 INTERVAL HISTORY: Subjective: Chief Complaint Progressive weight loss, decreased appetite, loss of taste, shortness of breath with exertion, low oxygen levels History of Present Illness Katrina Goodman is a patient with a history of sarcoma presenting for follow-up and management of ongoing cancer treatment. She reports progressive weight loss, having started at 130 lbs when treatment began, dropping to 115 lbs, and now weighing 107 lbs. The patient notes decreased appetite and states, I'm eating, just not a lot. She also mentions loss of taste, describing everything as bland and affecting her tongue, which she attributes to possibly being from chemotherapy. The patient reports experiencing shortness of breath when walking across parking lots or taking showers. Her oxygen levels have been noted to drop as low as 70- 78 when active, with readings of 87 at times. This suggests potential progression of lung nodules. Ms. Goodman expresses significant emotional distress related to her cancer diagnosis. The patient has been taking vitamin D supplements sporadically but is trying to take them daily now. She notes her bones are very weak. No imaging studies have been performed since September. The patient has been undergoing treatment with Doxil. Recent healthcare interactions include a mammogram yesterday and a consultation at [facility], where additional testing was recommended, including a CT pulmonary angiogram, gynecological exam, and another mammogram. The patient is considering seeking care at a sarcoma center in [place] for potential clinical trials and expert management. Medications and Supplements - Pembrolizumab ([place]) - Lenvatinib - Doxil - Vitamin D - Was taking sporadically, trying to take daily Review of Systems General: Positive for weight loss, decreased appetite, fatigue. Respiratory: Positive for shortness of breath, low oxygen levels with exertion. Gastrointestinal: Positive for loss of taste. Objective: Vital Signs - Oxygen Saturation: 95% (at rest), 88% (after walking) - Weight: 107 kg Physical Examination Respiratory: Oxygen saturation dropped to 88% with exertion during walk test. 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 Status post total abdominal hysterectomy and bilateral salpingo-oophorectomy, pelvic and aortic lymphadenectomy (07/26/2021). Biopsy of the vaginal mass positive for carcinosarcoma (09/13/2021) S/p 4 cycles of carboplatin and Taxol (01/23/2022 - 04/10/2022) S/p right lung hypermetabolic pulmonary nodule biopsy negative for malignancy (12/20/2021) Was on weekly carboplatin and Taxol (01/15/2023?06/27/2023). Last S/p radiation therapy to the right sacrum (02/04/2023 - 02/13/2023) S/p radiation therapy to the pelvis (11/20/2021?12/22/2021) Radiation of the sacral boost 02/26/2024? Progressed on lenvatinib and pembrolizumab. (04/02/2024 - 05/14/2024) B12 deficiency. Localized radiation to the sacrum SBRT completed in May 2024 Plan is on single agent Doxil DATE OF DIAGNOSIS: 05/26/2021 STAGE/TNM: Stage IV TREATMENT HISTORY: Care?Plan Start?Date Cycle Day Intent CARBOplatin?AUC?6;?PACLitaxel?175 01/23/2022 1 21 Curative?(primary) B?12 11/09/2021 1 28 Palliative PACLItaxel?60mg/m*2?+?Carboplatin?AUC?2?-weekly?x?18weeks?2 01/15/2023 1 7 Palliative Pembro?and?Lenvatinib 04/02/2024 1 21 Palliative Doxil?60/m2?sarcoma?shek 06/25/2024 1 21 Palliative Pembro?and?Lenvatinib 03/09/2025 5 21 Palliative HISTORY OF PRESENT ILLNESS: Katrina Feldman is a 64-year-old ENG speaking female without any significant past medical history has the following oncology history. 2016: Patient started having intermittent vaginal bleeding which over last 5 years has steadily worsened. Apparently patient was seeing multiple physicians according to her. 06/15/2021: Dr. Rodriguez did endometrial biopsy. 07/26/2021: Ms. Feldman had total abdominal hysterectomy, bilateral salpingo- oophorectomy, left ureterolysis, bilateral pelvic and aortic lymphadenectomy by Dr. Pelon Hassan in [place]. 09/13/2021:The patient had pelvic examination under anesthesia and biopsy of the vaginal mass 11/11/2021: PET/CT scan? 11/20/2021?12/22/2021: Ms. Feldman had 4500 cGy radiation therapy to the pelvis. 12/20/2021: CT-guided biopsy of the right lung hypermetabolic pulmonary nodule 01/23/2022: Patient is started on carboplatin and paclitaxel chemotherapy. 02/10/2022: CT scan of the chest abdomen and pelvis with IV contrast?numerous metastatic pulmonary nodules. No abdominal or pelvic lymphadenopathy. 01/23/2022?04/10/2022: Ms. Feldman had 4 cycles of carboplatin and Taxol. She decided to discontinue chemotherapy. 11/17/2022: CT scan of the abdomen and pelvis with IV contrast 12/13/2022: PET/CT scan? 01/15/2023: Ms. Feldman is started on weekly carboplatin and Taxol. Ms. Feldman received last dose of carboplatin on 03/14/2023. Carboplatin was discontinued due to national short supply. Patient was continued on single agent Taxol. 04/17/2023: CT scan of the chest without IV contrast and CT scan of the abdomen and pelvis with IV contrast?? 06/26/2023: CT scan of the chest abdomen and pelvis with IV contrast 06/27/2023: The patient received last dose of weekly Taxol. 11/27/2023: CT scan of the chest abdomen and pelvis with IV contrast 01/31/2024: MRI of the pelvis with IV contrast 02/27/2024: PET/CT scan 03/04/2024: Lenvima 10 mg p.o. twice daily prescribed. Patient is taking Lenvima for 3 days. She started developing loss of voice, weakness as well as dizziness. Patient decided not to take Lenvima anymore. 04/02/2024: Ms. Feldman received first dose of pembrolizumab. 88 2024: CT angiogram of the chest done 05/14/2024: Ms. Feldman had last dose of pembrolizumab. 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 Compazine - 10 mg 1 tab three times a day 2. docusate sodium - 100 mg 1 tab As needed 3. ZOFRAN ODT - 8 mg 1 tab Every 8 Hours Medications Last Reconciled by Kimberlyn Chavez MA on 02/17/2025 ALLERGIES: sulfasalazine REVIEW OF SYSTEMS: A complete 14-point review of systems was performed and is negative except as noted in interval history. PHYSICAL EXAMINATION: VITAL SIGNS: Weight?107?lbs (Change?since?02/10/25:?-8.6?lbs) ECOG Performance Status: 0 - Asymptomatic and fully active GENERAL APPEARANCE: Appears well, in no apparent distress, appropriately interactive. HEENT: Normocephalic, no temporal wasting, normal conjunctiva, no scleral icterus, normal hearing, lips without lesions, neck normal range of motion. CARDIOVASCULAR: Not assessed. PULMONARY: Normal respiratory effort, no respiratory distress or use of accessory muscles, speaking in full sentences, no tachypnea. EXTREMITIES: No pedal edema or cyanosis. SKIN: Normal skin appearance. NEUROLOGIC: Alert and oriented x4. PSHYCHIATRIC: Appropriate affect, mood normal, behavior normal, intact thought and speech. LABORATORY DATA: I have personally reviewed and interpreted each of the patient?s relevant lab tests, abnormal findings are below: Date 01/18/25 02/08/25 ??WHITE?BLOOD?COUNT?(Thou/mm3) 5.7 6.9 ??RED?BLOOD?COUNT?(Miln/mm3) 4.15 3.45?L ??HEMOGLOBIN?(gm/dl) 12.0 10.0?L ??HEMATOCRIT?(%) 34.9?L 28.4?L ??PLATELET?COUNT?(Thou/mm3) 200 185 ??NEUTROPHILS?%,?AUTO?(%) 85?H 81?H ??LYMPH?%,?AUTO?(%) 7?L 7?L ??NEUTROPHILS,?AUTO?(Thou/mm3) 4.8 5.5 ??GLUCOSE,RANDOM?(mg/dL) ? 109?H ??BLOOD?UREA?NITROGEN?(mg/dL) ? 13 ??CREATININE?(mg/dL) ? 0.70 ??SODIUM?(mmol/L) ? 138 ??POTASSIUM?(mmol/L) ? 3.2?L ??CHLORIDE?(mmol/L) ? 101 ??CrCl?(CandG)?(ml/min) ? 66.80 ??AST/SGOT?(Unit/L) ? 16 ??ALT/SGPT?(Unit/L) ? 11 ??ALKALINE?PHOSPHATASE?(Unit/L) ? 54 ??BILIRUBIN,?TOTAL?(mg/dL) ? 0.5 ??PROTEIN?TOTAL?(gm/dl) ? 6.5 ??ALBUMIN,?SERUM?(gm/dl) ? 4.3 ??GLOBULIN?(gm/dl) ? 2.2?L ??ALBUMIN/GLOBULIN?RATIO ? 2.0 ??CALCIUM,?SERUM?(mg/dL) ? 9.1 ??CALCIUM?SERUM?(CORRECTED)?(mg/dL) ? 9.1 ??CA?125?(O*)?(Unit/mL) ? 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 Status post total abdominal hysterectomy and bilateral salpingo-oophorectomy, pelvic and aortic lymphadenectomy (07/26/2021). Biopsy of the vaginal mass positive for carcinosarcoma (09/13/2021) Patient treated with 4 cycles of carboplatin Taxol and last 2 cycles were refused by patient Patient completed radiation therapy to the pelvis on 12/22/2021. CT-guided biopsy of the right lung pulmonary nodule was negative. Metastatic disease was confirmed in March 2023 at 18 weeks of Taxol was given and last dose was in June 2023 CT scan of the chest done in November showed pulmonary nodular metastatic disease and patient was started on Keytruda with lenvatinib. Patient was unable to tolerate lenvatinib and last dose of Pembro was given in April 2024 Patient received SBRT to the sacrum. Patient previously had received radiation to this area 2 times for palliative reasons Reviewed echocardiogram and is acceptable with ejection fraction 55 to 60% Patient is on Doxil and tolerating well Reviewed echocardiogram from 09/02/2024 and is stable Patient's CA125 is stable at 19-20 Assessment and Plan: Katrina Goodman, a patient with sarcoma, presents with progressive weight loss, low oxygen saturation, and loss of taste. Sarcoma Assessment: Patient has a history of sarcoma, which is known to be chemoresistant and is on doxil The patient has experienced progressive weight loss, dropping from 130 lbs at the start of treatment to the current weight of 107 lbs. This suggests disease progression or treatment side effects. No imaging has been performed since September, limiting our ability to assess current disease status. The patient is experiencing dyspnea with exertion, indicating possible pulmonary involvement or progression. Plan: - Refer to Dr. Eas[facility] at the [facility] in [place] for expert opinion and potential clinical trials - Order PET-CT scan and CT pulmonary angiogram locally before the referral appointment - Obtain CDs of imaging studies to bring to the [facility] - Discuss potential for metronomic chemotherapy and other treatment options with Dr. Easley - Educate patient on transportation and lodging options through [employer] and insurance coverage Hypoxemia Assessment: Patient reports dyspnea when walking across parking lots or taking showers. Oxygen saturation drops to 87% with exertion and was recorded as low as 70% today. This significant desaturation suggests possible progression of lung nodules or other pulmonary complications related to the sarcoma or its treatment. Plan: - Order home oxygen therapy - Educate patient on proper use of oxygen therapy - Consider portable oxygen concentrator for mobility Weight loss and decreased appetite Assessment: Patient reports significant weight loss from 130 lbs at the start of treatment to current weight of 107 lbs. Loss of taste (dysgeusia) is contributing to decreased appetite and food intake. This could be due to chemotherapy side effects or disease progression. Plan: - Recommend high-calorie, nutrient-dense foods - Suggest adding extra salt or seasonings to enhance flavor - Advise consumption of clarified butter (ghee) for additional calories - Encourage intake of protein shakes (e.g., Ensure) to supplement nutrition - Consider referral to surgical technician if weight loss continues ORDERS: Order # Description [id number] Comprehensive Metabolic Panel - 12 + CBC with Auto Diff [id number] PET/CT of Skull to mid-thigh for Restaging [id number] CT Scan + With W/O Contrast [id number] CA 212 [id number] Follow Up 4 Week [id number] RETURN TO CLINIC: 4 weeks BILLING AND COMPLIANCE: I reviewed external records from providers outside my specialty as summarized above. I spent a total of 50 minutes on this patient?s care on the day of their visit excluding time spent related to any billed procedures. This time includes time spent with the patient as well as time spent documenting in the medical record, reviewing patients records and tests, obtaining history, placing orders, communicating with other healthcare professionals, counseling the patient, family or caregiver, and/or care coordination for the diagnoses above. Electronically Signed by: Eduin Armando MD T: 2:10 PM CC: Pelon?RICH Fong PCP: Pelon Covington Referring: Pelon Covington This document was completed utilizing speech recognition software. Grammatical errors, random word insertions, pronoun errors, and incomplete sentences are an occasional consequence of this system due to software limitations, ambient noise, and hardware issues. Any formal questions or concerns about the content, text or information contained within the body of this dictation should be directly addressed to the provider for clarification.
== END 2025-02-20 23:59 | disposition home or self-care (01) ==
LOC: SCTC 11:04
PROVIDERS: PCP Student in an Organized Health Care Education/Training Program; Referring Provider Student in an Organized Health Care Education/Training Program; Visit Provider Internal Medicine Hematology & Oncology
DX: Z51.11 Encounter for antineoplastic chemotherapy (principal); C54.1 Malignant neoplasm of endometrium; C78.02 Secondary malignant neoplasm of left lung; C78.01 Secondary malignant neoplasm of right lung; R63.4 Abnormal weight loss; Z68.1 Body mass index [BMI] 19.9 or less, adult; Z90.710 Acquired absence of both cervix and uterus; Z90.722 Acquired absence of ovaries, bilateral; Z92.3 Personal history of irradiation; R09.02 Hypoxemia; R63.0 Anorexia
CPT/HCPCS: 36591; 80053; 85025; 86304; 96367; 96372; 96409; 99212; A4216; J1100; J1453; J1642; J2405; J2506; J7040; J7050; J9000; G0463

== ENCOUNTER → 2025-03-09 | Outpatient (CLI) | payer MEDICARE, MEDICAID, SELFPAY ==
[2025-03-09 08:52] LABS: Misc Send Out* See Sep Rpt
[2025-03-09 09:37] LABS: Basophils # (Auto) 0.1 Thou/mm3 (0.0-0.2); Basophils % (Auto) 2 % (0-2.5); Eosinophils # (Auto) 0.2 Thou/mm3 (0.0-0.5); Eosinophils % (Auto) 3 % (0-10); Hematocrit 31.1 % (36.0-46.0); Hemoglobin 10.4 g/dL (12.0-16.0); Immature Granulocytes % (Auto) 1 % (0-0); Immature Granulocytes Auto 0.04 Thou/mm3 (0.00-0.00); Lymphocytes # (Auto) 0.5 Thou/mm3 (1.0-4.8); Lymphocytes % (Auto) 10 % (10-50); Mean Corpuscular HGB Conc 33.4 g/dl (31.0-37.0); Mean Corpuscular Hemoglobin 30.1 pg (25.0-35.0); Mean Corpuscular Volume 90 fL (80-100); Monocytes # (Auto) 0.4 Thou/mm3 (0.0-0.8); Monocytes % (Auto) 9 % (0-12); Neutrophils # (Auto) 3.6 Thou/mm3 (1.8-7.7); Neutrophils % (Auto) 75 % (37-80); Nucleated Red Blood Cell % 0 /100 WBC (0); Platelet Count 243 Thou/mm3 (140-440); RDW Standard Deviation 53.9 fL (36.4-46.3); Red Blood Count 3.46 Miln/mm3 (4.00-5.20); White Blood Count 4.7 Thou/mm3 (3.6-11.0)
[2025-03-09 10:11] LABS: Alanine Aminotransferase 9 U/L (10-49); Albumin, Serum 4.5 gm/dL (3.4-4.8); Albumin/Globulin Ratio 2.8 (1.2-2.2); Alkaline Phosphatase 54 U/L (46-116); Anion Gap 10 (7-16); Aspartate Amino Transferase 15 U/L (0-34); BUN/Creatinine Ratio 18 Ratio (12-20); Bilirubin,Total 0.6 mg/dL (0.3-1.2); Blood Urea Nitrogen 14 mg/dL (9-23); Calcium 9.6 mg/dL (8.3-10.6); Calcium (Corrected) 9.6 mg/dL (8.5-10.1); Carbon Dioxide 29.8 mMol/L (20.0-31.0); Chloride 103 mMol/L (98-107); Creatinine (Component) 0.8 mg/dL (0.6-1.3); Globulin 1.6 gm/dL (2.3-3.5); Glucose 97 mg/dL (74-106); Osmolality,Calculated 285 (275-295); Potassium 3.8 mMol/L (3.4-5.1); Sodium 143 mMol/L (136-145); Total Protein 6.1 gm/dL (5.7-8.2); eGFR > 60 See Note
== END | disposition home or self-care (01) ==
PROVIDERS: PCP Student in an Organized Health Care Education/Training Program; Referring Provider Internal Medicine Hematology & Oncology; Visit Provider Internal Medicine Hematology & Oncology
DX: C54.9 Malignant neoplasm of corpus uteri, unspecified (principal); C79.51 Secondary malignant neoplasm of bone
CPT/HCPCS: 36415; 80053; 85025; 86304

== ENCOUNTER 2025-03-10 11:09 | Outpatient (RCR) | payer MEDICARE, MEDICAID, SELFPAY | END 2025-03-22 23:59 | disposition home or self-care (01) | LOC: SCTC 11:09 | PROVIDERS: PCP Student in an Organized Health Care Education/Training Program; Referring Provider Student in an Organized Health Care Education/Training Program; Visit Provider Radiology Therapeutic Radiology | DX: C54.1 Malignant neoplasm of endometrium (principal); C78.01 Secondary malignant neoplasm of right lung; C78.02 Secondary malignant neoplasm of left lung; C79.51 Secondary malignant neoplasm of bone; Z90.710 Acquired absence of both cervix and uterus; Z90.722 Acquired absence of ovaries, bilateral; Z92.3 Personal history of irradiation | CPT/HCPCS: 99213; G0463 ==

== ENCOUNTER → 2025-03-16 | Outpatient (CLI) | payer MEDICARE, MEDICAID, SELFPAY ==
--- NOTE | 2025-03-16 14:30 | ECHO_ITS ---
Transthoracic Echo Report Ht (in): 63 Wt (lb): 125 Exam Location: Echo Lab Status: Outpatient Marketing Production Specialist: Indications: Procedure Performed: BP: / HR: Technical Quality: Adequate MEASUREMENTS (Male / Female) Normal Values 2D ECHO LV Diastolic Diameter PLAX 3.3 cm 4.2 - 5.9 / 3.9 - 5.3 cm LV Systolic Diameter PLAX 2.2 cm IVS Diastolic Thickness 0.7 cm 0.6 - 1.0 / 0.6 - 0.9 cm LVPW Diastolic Thickness 0.9 cm 0.6 - 1.0 / 0.6 - 0.9 cm LV Relative Wall Thickness 0.5 LVOT Diameter 2.0 cm LA Volume Index 25.2 cm?/m? 16 - 28 cm?/m? Ascending Aorta Diameter 2.5 cm DOPPLER AV Peak Velocity 136.0 cm/s AV Peak Gradient 7.4 mmHg LVOT Peak Velocity 90.7 cm/s LVOT Peak Gradient 3.3 mmHg AV Area Cont Eq pk 2.1 cm? MV Area PHT 4.2 cm? Mitral E Point Velocity 66.0 cm/s Mitral A Point Velocity 87.8 cm/s Mitral E to A Ratio 0.8 LV E' Lateral Velocity 4.3 cm/s Mitral E to LV E' Lateral Ratio 15.2 LV E' Septal Velocity 3.7 cm/s Mitral E to LV E' Septal Ratio 17.8 PV Peak Velocity 89.6 cm/s PV Peak Gradient 3.2 mmHg FINDINGS Left Ventricle Normal left ventricular size, wall thickness, systolic function with no obvious regional wall motion abnormalities. Normal left ventricular diastolic filling pattern for age. The ejection fraction is visually estimated at 55%. Right Ventricle The right ventricle is normal in size and systolic function. The estimated right ventricular systolic pressure can not be determined due to innadequate Doppler signal. Left Atrium The left atrium is normal by two-dimensional, color flow and Doppler imaging with no structural abnormalities, no thrombus formation present. Right Atrium The right atrium is normal by two-dimensional imaging, color flow and Doppler imaging with no structural abnormalities, no thrombus formation present. Atrial Septum The interatrial septum appears normal with no evidence of a shunt. Aorta The aorta is normal by two-dimensional, color flow and Doppler interrogation. Mitral Valve The mitral valve is normal by two-dimensional, color flow and Doppler interrogation. There is trace mitral regurgitation. Aortic Valve The aortic valve is trileaflet and normal by two-dimensional, color flow and Doppler interrogation. There is no significant aortic valve regurgitation. Tricuspid Valve The tricuspid valve is normal by two-dimensional, color flow and Doppler interrogation. There is trace tricuspid regurgitation. Pulmonic Valve The pulmonic valve is not well visualized. There is trace pulmonic regurgitation. Vessels The pulmonary artery appears normal. The inferior vena cava pulmonary and hepatic veins appear normal. Pericardium The pericardium is normal by two-dimensional imaging. There is no significant pericardial effusion. CONCLUSIONS Indications: Malignant Neoplasm of Corpus Uteri, Unspecified Normal LV size and function with normal EF of 55 to 60%. Normal diastolic function. Normal RV size and function. RVSP could not be estimated accurately. Trace MR, TR. No pericardial effusion Anthony Jeffers (Electronically Signed) Final Date: 18 March 2025 18:08
== END | disposition home or self-care (01) ==
PROVIDERS: PCP Student in an Organized Health Care Education/Training Program; Referring Provider Internal Medicine Hematology & Oncology; Visit Provider Internal Medicine Hematology & Oncology
DX: C54.9 Malignant neoplasm of corpus uteri, unspecified (principal); I08.1 Rheumatic disorders of both mitral and tricuspid valves; I37.1 Nonrheumatic pulmonary valve insufficiency
CPT/HCPCS: 93306

== ENCOUNTER 2025-03-23 14:32 | Outpatient (RCR) | payer MEDICARE, MEDICAID, SELFPAY ==
--- NOTE | 2025-04-11 21:23 | CTCFLWUP_ITS ---
Patient: KATRINA FELDMAN : 1960 Page 11 of 12 FOLLOW UP NOTE DATE OF SERVICE: 03/23/2025 NAME: KATRINA FELDMAN ACCOUNT: [id number] : 1960 AGE: 64 INTERVAL HISTORY: Subjective: Chief Complaint Telephone appointment for follow-up. Ms. Feldman is scheduled to get her PET scan on 04/06/2025. Patient is also scheduled for CTA on 21 April. Patient is here to discuss her echocardiogram results. History of Present Illness Katrina Goodman is a patient with a history of sarcoma presenting for follow-up and management of ongoing cancer treatment. She reports progressive weight loss, having started at 130 lbs when treatment began, dropping to 115 lbs, and now weighing 107 lbs. The patient notes decreased appetite and states, I'm eating, just not a lot. She also mentions loss of taste, describing everything as bland and affecting her tongue, which she attributes to possibly being from chemotherapy. The patient reports experiencing shortness of breath when walking across parking lots or taking showers. Her oxygen levels have been noted to drop as low as 70- 78 when active, with readings of 87 at times. This suggests potential progression of lung nodules. Ms. Goodman expresses significant emotional distress related to her cancer diagnosis. The patient has been taking vitamin D supplements sporadically but is trying to take them daily now. She notes her bones are very weak. No imaging studies have been performed since September. The patient has been undergoing treatment with Doxil. Recent healthcare interactions include a mammogram yesterday and a consultation at [facility], where additional testing was recommended, including a CT pulmonary angiogram, gynecological exam, and another mammogram. The patient is considering seeking care at a sarcoma center in [place] for potential clinical trials and expert management. Medications and Supplements - Pembrolizumab - Lenvatinib - Doxil - Vitamin D - Was taking sporadically, trying to take daily Review of Systems General: Positive for weight loss, decreased appetite, fatigue. Respiratory: Positive for shortness of breath, low oxygen levels with exertion. Gastrointestinal: Positive for loss of taste. Objective: Vital Signs - Oxygen Saturation: 95% (at rest), 88% (after walking) - Weight: 107 kg Physical Examination Respiratory: Oxygen saturation dropped to 88% with exertion during walk test. Laboratory, Imaging, and Diagnostic Test Results - Oxygen saturation: 70% (during current visit) - Previous oxygen saturation measurements: - 78% (morning of current visit) - 87% (occasionally) ONCOLOGY HISTORY:?[facility] Hx? 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 Status post total abdominal hysterectomy and bilateral salpingo-oophorectomy, pelvic and aortic lymphadenectomy (07/26/2021). Biopsy of the vaginal mass positive for carcinosarcoma (09/13/2021) S/p 4 cycles of carboplatin and Taxol (01/23/2022 - 04/10/2022) S/p right lung hypermetabolic pulmonary nodule biopsy negative for malignancy (12/20/2021) Was on weekly carboplatin and Taxol (01/15/2023?06/27/2023). Last S/p radiation therapy to the right sacrum (02/04/2023 - 02/13/2023) S/p radiation therapy to the pelvis (11/20/2021?12/22/2021) Radiation of the sacral boost 02/26/2024? Progressed on lenvatinib and pembrolizumab. (04/02/2024 - 05/14/2024) B12 deficiency. Localized radiation to the sacrum SBRT completed in May 2024 Plan is on single agent Doxil DATE OF DIAGNOSIS: 05/26/2021 STAGE/TNM: Stage IV TREATMENT HISTORY: Care?Plan Start?Date Cycle Day Intent CARBOplatin?AUC?6;?PACLitaxel?175 01/23/2022 1 21 Curative?(primary) B?12 11/09/2021 1 28 Palliative PACLItaxel?60mg/m*2?+?Carboplatin?AUC?2?-weekly?x?18weeks?2 01/15/2023 1 7 Palliative Pembro?and?Lenvatinib 04/02/2024 1 21 Palliative Doxil?60/m2?sarcoma?shek 06/25/2024 1 21 Palliative Pembro?and?Lenvatinib 03/09/2025 5 21 Palliative HISTORY OF PRESENT ILLNESS: Katrina Feldman is a 64-year-old ENG speaking female without any significant past medical history has the following oncology history. 2016: Patient started having intermittent vaginal bleeding which over last 5 years has steadily worsened. Apparently patient was seeing multiple physicians according to her. 06/15/2021: Dr. Rodriguez did endometrial biopsy. 07/26/2021: Ms. Feldman had total abdominal hysterectomy, bilateral salpingo- oophorectomy, left ureterolysis, bilateral pelvic and aortic lymphadenectomy by Dr. Pelon Hassan in [place]. 09/13/2021:The patient had pelvic examination under anesthesia and biopsy of the vaginal mass 11/11/2021: PET/CT scan? 11/20/2021?12/22/2021: Ms. Feldman had 4500 cGy radiation therapy to the pelvis. 12/20/2021: CT-guided biopsy of the right lung hypermetabolic pulmonary nodule 01/23/2022: Patient is started on carboplatin and paclitaxel chemotherapy. 02/10/2022: CT scan of the chest abdomen and pelvis with IV contrast?numerous metastatic pulmonary nodules. No abdominal or pelvic lymphadenopathy. 01/23/2022?04/10/2022: Ms. Feldman had 4 cycles of carboplatin and Taxol. She decided to discontinue chemotherapy. 11/17/2022: CT scan of the abdomen and pelvis with IV contrast 12/13/2022: PET/CT scan? 01/15/2023: Ms. Feldman is started on weekly carboplatin and Taxol. Ms. Feldman received last dose of carboplatin on 03/14/2023. Carboplatin was discontinued due to national short supply. Patient was continued on single agent Taxol. 04/17/2023: CT scan of the chest without IV contrast and CT scan of the abdomen and pelvis with IV contrast?? 06/26/2023: CT scan of the chest abdomen and pelvis with IV contrast 06/27/2023: The patient received last dose of weekly Taxol. 11/27/2023: CT scan of the chest abdomen and pelvis with IV contrast 01/31/2024: MRI of the pelvis with IV contrast 02/27/2024: PET/CT scan 03/04/2024: Lenvima 10 mg p.o. twice daily prescribed. Patient is taking Lenvima for 3 days. She started developing loss of voice, weakness as well as dizziness. Patient decided not to take Lenvima anymore. 04/02/2024: Ms. Feldman received first dose of pembrolizumab. 2023: CT angiogram of the chest done 05/14/2024: Ms. Feldman had last dose of pembrolizumab. OTHER MEDICAL HISTORY/CONDITIONS: FAMILY HISTORY: ?[facility] Hx? 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 MEDICATIONS: 1. Compazine - 10 mg 1 tab three times a day 2. docusate sodium - 100 mg 1 tab As needed 3. HYDROcodone-acetaminophen - 10-325 mg 1 tab q6 4. ZOFRAN ODT - 8 mg 1 tab Every 8 Hours?[facility] Meds? Medications Last Reconciled by Fanta Newby MA on 03/23/2025 ALLERGIES: sulfasalazine REVIEW OF SYSTEMS: A complete 14-point review of systems was performed and is negative except as noted in interval history. LABORATORY DATA: I have personally reviewed and interpreted each of the patient?s relevant lab tests, abnormal findings are below: Date 02/08/25 03/09/25 ??WHITE?BLOOD?COUNT?(Thou/mm3) 6.9 4.7 ??RED?BLOOD?COUNT?(Miln/mm3) 3.45?L 3.46?L ??HEMOGLOBIN?(gm/dl) 10.0?L 10.4?L ??HEMATOCRIT?(%) 28.4?L 31.1?L ??PLATELET?COUNT?(Thou/mm3) 185 243 ??NEUTROPHILS?%,?AUTO?(%) 81?H 75 ??LYMPH?%,?AUTO?(%) 7?L 10 ??NEUTROPHILS,?AUTO?(Thou/mm3) 5.5 3.6 ??GLUCOSE,RANDOM?(mg/dL) ? 97 ??BLOOD?UREA?NITROGEN?(mg/dL) ? 14 ??CREATININE?(mg/dL) ? 0.80 ??SODIUM?(mmol/L) ? 143 ??POTASSIUM?(mmol/L) ? 3.8 ??CHLORIDE?(mmol/L) ? 103 ??CrCl?(CandG)?(ml/min) ? 55.15 ??AST/SGOT?(Unit/L) ? 15 ??ALT/SGPT?(Unit/L) ? 9?L ??ALKALINE?PHOSPHATASE?(Unit/L) ? 54 ??BILIRUBIN,?TOTAL?(mg/dL) ? 0.6 ??PROTEIN?TOTAL?(gm/dl) ? 6.1 ??ALBUMIN,?SERUM?(gm/dl) ? 4.5 ??GLOBULIN?(gm/dl) ? 1.6?L ??ALBUMIN/GLOBULIN?RATIO ? 2.8?H ??CALCIUM,?SERUM?(mg/dL) ? 9.6 ??CALCIUM?SERUM?(CORRECTED)?(mg/dL) ? 9.6 ??CA?125?(O*)?(Unit/mL) ? 63.0?H ASSESSMENT/PLAN:?Edwige Armando Assessment/Plan? Stage IV carcinosarcoma of the uterus with pulmonary mets. Status post total abdominal hysterectomy and bilateral salpingo-oophorectomy, pelvic and aortic lymphadenectomy (07/26/2021). Biopsy of the vaginal mass positive for carcinosarcoma (09/13/2021) Patient treated with 4 cycles of carboplatin Taxol and last 2 cycles were refused by patient Patient completed radiation therapy to the pelvis on 12/22/2021. CT-guided biopsy of the right lung pulmonary nodule was negative. Metastatic disease was confirmed in March 2023 at 18 weeks of Taxol was given and last dose was in June 2023 CT scan of the chest done in November showed pulmonary nodular metastatic disease and patient was started on Keytruda with lenvatinib. Patient was unable to tolerate lenvatinib and last dose of Pembro was given in April 2024 Patient received SBRT to the sacrum. Patient previously had received radiation to this area 2 times for palliative reasons Reviewed echocardiogram and is acceptable with ejection fraction 55 to 60% Patient is on Doxil and tolerating well Reviewed echocardiogram from 09/02/2024 and is stable The patient has experienced progressive weight loss, dropping from 130 lbs at the start of treatment to the current weight of 107 lbs. This suggests disease progression or treatment side effects. No imaging has been performed since September, limiting our ability to assess current disease status. The patient is experiencing dyspnea with exertion, indicating possible pulmonary involvement or progression. Will follow-up on the PET CT scan and CTA Advised Ms. Feldman to follow-up with sarcoma center Patient is progressively getting worsened and likely have progression of disease Er/pr negative No mutations targetable Msi stable Advised patient for follow up with higher level center for possible terbectidin Doxil is ineffective and will stop current chemotherapy Patient was given oxygen at the last visit Will discuss hospice at inperson appointment once patient is ready RETURN TO CLINIC: I reviewed the diagnosis, prognosis, and recommended treatment/procedure options with the patient (and/or their legal patient registration representative), including the potential benefits, risks, side effects and alternative therapies. We also discussed the option of no treatment and the possibility of clinical trial participation, if applicable. All questions were addressed, and they demonstrated understanding. They provided informed consent to proceed with the proposed plan of care. BILLING AND COMPLIANCE: I reviewed external records from providers outside my specialty as summarized above. I spent a total of 50 minutes on this patient?s care on the day of their visit excluding time spent related to any billed procedures. This time includes time spent with the patient as well as time spent documenting in the medical record, reviewing patients records and tests, obtaining history, placing orders, communicating with other healthcare professionals, counseling the patient, family or caregiver, and/or care coordination for the diagnoses above. Electronically Signed by: Eduin Armando MD T: 9:21 PM CC: Pelon?Hetal? PCP: Pelon Covington Referring: Pelon Covington This document was completed utilizing speech recognition software. Grammatical errors, random word insertions, pronoun errors, and incomplete sentences are an occasional consequence of this system due to software limitations, ambient noise, and hardware issues. Any formal questions or concerns about the content, text or information contained within the body of this dictation should be directly addressed to the provider for clarification.
== END 2025-04-22 23:59 | disposition home or self-care (01) ==
LOC: SCTC 14:32
PROVIDERS: PCP Student in an Organized Health Care Education/Training Program; Referring Provider Student in an Organized Health Care Education/Training Program; Visit Provider Internal Medicine Hematology & Oncology
DX: C54.1 Malignant neoplasm of endometrium (principal); C78.02 Secondary malignant neoplasm of left lung; C78.01 Secondary malignant neoplasm of right lung; Z90.710 Acquired absence of both cervix and uterus; Z90.722 Acquired absence of ovaries, bilateral; Z92.3 Personal history of irradiation
CPT/HCPCS: 99212; G0463

== ENCOUNTER → 2025-03-25 | Outpatient (CLI) | payer MEDICARE, MEDICAID, SELFPAY ==
--- NOTE | 2025-03-25 15:54 | XR_ITS ---
Examination: CTA chest with intravenous contrast 2-D reconstructions 3-D reconstructions, vascular Date and time of exam: March 25, 2025 at 1601 hours Comparison April 30, 2024 INDICATIONS: Coughing with shortness of breath several days, diagnosis uterine carcinoma CTDI: vol (mGy) 7.78 DLP: (mGycm) 155 Technique: Multiple axial sections of the thorax have been obtained. 3 mm slice thickness, from below the hemidiaphragms to above the apices of the lungs. Mediastinal and lung density settings have been obtained. 2-D sagittal and coronal reconstructions. 3-D angiographic renderings, 3-D volume renderings, 3D post processing, vascular maximum intensity projections obtained. Contrast administered is 100 cc Isovue 370. Low dose protocols were performed. One or more of the following dose reduction techniques were used; automated exposure control, adjustment of the mA and/or KV according to patient size, use of iterative reconstruction technique. Findings: No thoracic aortic aneurysm dilatation or dissection No pulmonary artery emboli Again noted multiple bilateral metastatic pulmonary nodules, several of which have significantly increased in size compared to prior study Pneumonia at the right base Interval severe right hydronephrosis only partly visualized IMPRESSION: Negative for pulmonary artery emboli Marked progression of pulmonary nodular metastatic disease. Right base pneumonia Partially visualized interval significant right hydronephrosis, recommend CT scan abdomen and pelvis without intravenous contrast follow-up
== END | disposition home or self-care (01) ==
LOC: CCTX 14:25 → SCAT 15:23
PROVIDERS: Referring Provider Internal Medicine Hematology & Oncology; Visit Provider Internal Medicine Hematology & Oncology
DX: J18.9 Pneumonia, unspecified organism (principal); N13.30 Unspecified hydronephrosis; C78.00 Secondary malignant neoplasm of unspecified lung; C54.9 Malignant neoplasm of corpus uteri, unspecified; C79.51 Secondary malignant neoplasm of bone
CPT/HCPCS: 71275; A4649; Q9967

== ENCOUNTER → 2025-04-06 | Outpatient (CLI) | payer MEDICARE, MEDICAID, SELFPAY ==
--- NOTE | 2025-04-06 13:15 | XR_ITS ---
EXAMINATION: PET/CT FUSION SKULL TO THIGH EXAM DATE AND TIME: April 06, [address] abdomen pelvis January 12, 2025, CT chest March 25, 2025 PET/CT scan October 22, 2024 INDICATIONS: Diagnosis endometrial cancer post treatment CTDI:vol (mGy) 2.78 DLP: (mGycm) 2.53 PROCEDURE: 15.7 mCi FDG was administered intravenously To allow for distribution and uptake of radiotracer, the patient was allowed to rest quietly in a shielded room. Imaging was performed on an integrated 16-slice PET/CT scanner, with scanning from the skull base to the mid thigh. Serum blood glucose at the time of the injection was measured 92 mg/dL. CT scanning was performed without oral or intravenous contrast material. FINDINGS: Head and Neck: There is no parul hypermetabolism in the neck. The visualized portions of the brain are normal in appearance on CT. Chest: Marked progression of hypermetabolic nodular metastatic disease compared to PET CT scan October 22, 2024 Numerous enlarging nodules and new pulmonary nodules, please see the CT chest report March 25, 2025. Small bilateral pleural effusions Abdomen and Pelvis: Again noted advanced right hydronephrosis Progression of hypermetabolic periaortic lymphadenopathy including 31 mm right hypermetabolic para-aortic mass compared to 22 mm on October 22, 2024 Musculoskeletal: Marrow uptake is within normal range. Impression: Marked progression of pulmonary nodular metastatic disease compared with the CT scan October 22, 2024. Progression of abdominal periaortic lymphadenopathy, 31 mm hypermetabolic right periaortic lymph node mass compared with 22 mm on October 22, 2024 study
== END | disposition home or self-care (01) ==
PROVIDERS: Referring Provider Internal Medicine Hematology & Oncology; Visit Provider Internal Medicine Hematology & Oncology
DX: C79.51 Secondary malignant neoplasm of bone (principal); C54.9 Malignant neoplasm of corpus uteri, unspecified; R59.0 Localized enlarged lymph nodes
CPT/HCPCS: 78815; A9552

== ENCOUNTER 2025-05-04 09:40 | Outpatient (RCR) | payer MEDICARE, MEDICAID, SELFPAY ==
--- NOTE | 2025-05-04 12:15 | CTCFLWUP_ITS ---
Patient: KATRINA FELDMAN : 1960 Page 9 of 11 FOLLOW UP NOTE DATE OF SERVICE: 05/04/2025 NAME: KATRINA FELDMAN ACCOUNT: [id number] : 1960 AGE: 64 INTERVAL HISTORY: Patien is receiving [facility] at [facility] and so number Kenia Paige. Patient is to being treated with carbo Taxol Doxil and nivolumab combination weekly. Patient says that she was unable to receive her last treatment as her labs are not available to the treating physician. Patient is requesting to get bedside commode shower chair to help her in the home. Patient also have hard time getting her labs done. Patient is unable to drive. Medications and Supplements - Pembrolizumab - Lenvatinib - Doxil - Vitamin D - Was taking sporadically, trying to take daily Review of Systems General: Positive for weight loss, decreased appetite, fatigue. Respiratory: Positive for shortness of breath, low oxygen levels with exertion. Gastrointestinal: Positive for loss of taste. Objective: Vital Signs - Oxygen Saturation: 95% (at rest), 88% (after walking) - Weight: 107 kg Physical Examination Respiratory: Oxygen saturation dropped to 88% with exertion during walk test. 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 Status post total abdominal hysterectomy and bilateral salpingo-oophorectomy, pelvic and aortic lymphadenectomy (07/26/2021). Biopsy of the vaginal mass positive for carcinosarcoma (09/13/2021) S/p 4 cycles of carboplatin and Taxol (01/23/2022 - 04/10/2022) S/p right lung hypermetabolic pulmonary nodule biopsy negative for malignancy (12/20/2021) Was on weekly carboplatin and Taxol (01/15/2023?06/27/2023). Last S/p radiation therapy to the right sacrum (02/04/2023 - 02/13/2023) S/p radiation therapy to the pelvis (11/20/2021?12/22/2021) Radiation of the sacral boost 02/26/2024? Progressed on lenvatinib and pembrolizumab. (04/02/2024 - 05/14/2024) B12 deficiency. Localized radiation to the sacrum SBRT completed in May 2024 Plan is on single agent Doxil DATE OF DIAGNOSIS: 05/26/2021 STAGE/TNM: Stage IV TREATMENT HISTORY: Care?Plan Start?Date Cycle Day Intent CARBOplatin?AUC?6;?PACLitaxel?175 01/23/2022 1 21 Curative?(primary) B?12 11/09/2021 1 28 Palliative PACLItaxel?60mg/m*2?+?Carboplatin?AUC?2?-weekly?x?18weeks?2 01/15/2023 1 7 Palliative Pembro?and?Lenvatinib 04/02/2024 1 21 Palliative Doxil?60/m2?sarcoma?shek 06/25/2024 1 21 Palliative Pembro?and?Lenvatinib 03/09/2025 5 21 Palliative HISTORY OF PRESENT ILLNESS: Katrina Feldman is a 64-year-old ENG speaking female without any significant past medical history has the following oncology history. 2016: Patient started having intermittent vaginal bleeding which over last 5 years has steadily worsened. Apparently patient was seeing multiple physicians according to her. 06/15/2021: Dr. Rodriguez did endometrial biopsy. 07/26/2021: Ms. Feldman had total abdominal hysterectomy, bilateral salpingo- oophorectomy, left ureterolysis, bilateral pelvic and aortic lymphadenectomy by Dr. Pelon Hassan in [place]. 09/13/2021:The patient had pelvic examination under anesthesia and biopsy of the vaginal mass 11/11/2021: PET/CT scan? 11/20/2021?12/22/2021: Ms. Feldman had 4500 cGy radiation therapy to the pelvis. 12/20/2021: CT-guided biopsy of the right lung hypermetabolic pulmonary nodule 01/23/2022: Patient is started on carboplatin and paclitaxel chemotherapy. 02/10/2022: CT scan of the chest abdomen and pelvis with IV contrast?numerous metastatic pulmonary nodules. No abdominal or pelvic lymphadenopathy. 01/23/2022?04/10/2022: Ms. Feldman had 4 cycles of carboplatin and Taxol. She decided to discontinue chemotherapy. 11/17/2022: CT scan of the abdomen and pelvis with IV contrast 12/13/2022: PET/CT scan? 01/15/2023: Ms. Feldman is started on weekly carboplatin and Taxol. Ms. Feldman received last dose of carboplatin on 03/14/2023. Carboplatin was discontinued due to national short supply. Patient was continued on single agent Taxol. 04/17/2023: CT scan of the chest without IV contrast and CT scan of the abdomen and pelvis with IV contrast?? 06/26/2023: CT scan of the chest abdomen and pelvis with IV contrast 06/27/2023: The patient received last dose of weekly Taxol. 11/27/2023: CT scan of the chest abdomen and pelvis with IV contrast 01/31/2024: MRI of the pelvis with IV contrast 02/27/2024: PET/CT scan 03/04/2024: Lenvima 10 mg p.o. twice daily prescribed. Patient is taking Lenvima for 3 days. She started developing loss of voice, weakness as well as dizziness. Patient decided not to take Lenvima anymore. 04/02/2024: Ms. Feldman received first dose of pembrolizumab. 2023: CT angiogram of the chest done 05/14/2024: Ms. Feldman had last dose of pembrolizumab. 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 Compazine - 10 mg 1 tab three times a day 2. docusate sodium - 100 mg 1 tab As needed 3. HYDROcodone-acetaminophen - 10-325 mg 1 tab q6 4. ZOFRAN ODT - 8 mg 1 tab Every 8 Hours Medications Last Reconciled by Kimberlyn Street MD on 05/04/2025 ALLERGIES: sulfasalazine REVIEW OF SYSTEMS: A complete 14-point review of systems was performed and is negative except as noted in interval history. PHYSICAL EXAMINATION: VITAL SIGNS: Temperature?98.2, B/P?96/58, Oxygen?Saturation?96% PAIN: 0 - No pain GENERAL APPEARANCE: Appears well, in no apparent distress, appropriately interactive. HEENT: Normocephalic, no temporal wasting, normal conjunctiva, no scleral icterus, normal hearing, lips without lesions, neck normal range of motion. CARDIOVASCULAR: Not assessed. PULMONARY: Normal respiratory effort, no respiratory distress or use of accessory muscles, speaking in full sentences, no tachypnea. EXTREMITIES: No pedal edema or cyanosis. SKIN: Normal skin appearance. NEUROLOGIC: Alert and oriented x4. PSHYCHIATRIC: Appropriate affect, mood normal, behavior normal, intact thought and speech. LABORATORY DATA: I have personally reviewed and interpreted each of the patient?s relevant lab tests, abnormal findings are below: Date 02/08/25 03/09/25 ??WHITE?BLOOD?COUNT?(Thou/mm3) 6.9 4.7 ??RED?BLOOD?COUNT?(Miln/mm3) 3.45?L 3.46?L ??HEMOGLOBIN?(gm/dl) 10.0?L 10.4?L ??HEMATOCRIT?(%) 28.4?L 31.1?L ??PLATELET?COUNT?(Thou/mm3) 185 243 ??NEUTROPHILS?%,?AUTO?(%) 81?H 75 ??LYMPH?%,?AUTO?(%) 7?L 10 ??NEUTROPHILS,?AUTO?(Thou/mm3) 5.5 3.6 ??GLUCOSE,RANDOM?(mg/dL) ? 97 ??BLOOD?UREA?NITROGEN?(mg/dL) ? 14 ??CREATININE?(mg/dL) ? 0.80 ??SODIUM?(mmol/L) ? 143 ??POTASSIUM?(mmol/L) ? 3.8 ??CHLORIDE?(mmol/L) ? 103 ??CrCl?(CandG)?(ml/min) ? 55.15 ??AST/SGOT?(Unit/L) ? 15 ??ALT/SGPT?(Unit/L) ? 9?L ??ALKALINE?PHOSPHATASE?(Unit/L) ? 54 ??BILIRUBIN,?TOTAL?(mg/dL) ? 0.6 ??PROTEIN?TOTAL?(gm/dl) ? 6.1 ??ALBUMIN,?SERUM?(gm/dl) ? 4.5 ??GLOBULIN?(gm/dl) ? 1.6?L ??ALBUMIN/GLOBULIN?RATIO ? 2.8?H ??CALCIUM,?SERUM?(mg/dL) ? 9.6 ??CALCIUM?SERUM?(CORRECTED)?(mg/dL) ? 9.6 ??CA?125?(O*)?(Unit/mL) ? 63.0?H ASSESSMENT/PLAN: Stage IV carcinosarcoma of the uterus with pulmonary mets. Status post total abdominal hysterectomy and bilateral salpingo-oophorectomy, pelvic and aortic lymphadenectomy (07/26/2021). Biopsy of the vaginal mass positive for carcinosarcoma (09/13/2021) Patient treated with 4 cycles of carboplatin Taxol and last 2 cycles were refused by patient Patient completed radiation therapy to the pelvis on 12/22/2021. CT-guided biopsy of the right lung pulmonary nodule was negative. Metastatic disease was confirmed in March 2023 at 18 weeks of Taxol was given and last dose was in June 2023 CT scan of the chest done in November showed pulmonary nodular metastatic disease and patient was started on Keytruda with lenvatinib. Patient was unable to tolerate lenvatinib and last dose of Pembro was given in April 2024 Patient received SBRT to the sacrum. Patient previously had received radiation to this area 2 times for palliative reasons Reviewed echocardiogram and is acceptable with ejection fraction 55 to 60% Patient is on Doxil and tolerating well Reviewed echocardiogram from 09/02/2024 and is stable The patient has experienced progressive weight loss, dropping from 130 lbs at the start of treatment to the current weight of 107 lbs. This suggests disease progression or treatment side effects. No imaging has been performed since September, limiting our ability to assess current disease status. The patient is experiencing dyspnea with exertion, indicating possible pulmonary involvement or progression. PET CT scan on 04/11/2025 showed progression especially in the lungs Patient is receiving treatment through the clinical trial with multiple drugs Advised to continue follow-up with [facility] for doing the labs for Ms. Feldman weekly CBC CMP TSH T4 ordered Bedside commode and shower chair ordered Patient can come back and see me if she has new problem or she stopped doing clinical trial and want to start treatment here At this time prognosis is guarded Pain management as per Dr. Whiting ORDERS: Order # Description [id number] RETURN TO CLINIC: I reviewed the diagnosis, prognosis, and recommended treatment/procedure options with the patient (and/or their legal pharmaceutical service representative), including the potential benefits, risks, side effects and alternative therapies. We also discussed the option of no treatment and the possibility of clinical trial participation, if applicable. All questions were addressed, and they demonstrated understanding. They provided informed consent to proceed with the proposed plan of care. BILLING AND COMPLIANCE: I reviewed external records from providers outside my specialty as summarized above. I spent a total of 50 minutes on this patient?s care on the day of their visit excluding time spent related to any billed procedures. This time includes time spent with the patient as well as time spent documenting in the medical record, reviewing patients records and tests, obtaining history, placing orders, communicating with other healthcare professionals, counseling the patient, family or caregiver, and/or care coordination for the diagnoses above. Electronically Signed by: Eduin Armando MD T: 12:12 PM CC: Pelon?RICH Fong PCP: Pelon Covington Referring: Pelon Covington This document was completed utilizing speech recognition software. Grammatical errors, random word insertions, pronoun errors, and incomplete sentences are an occasional consequence of this system due to software limitations, ambient noise, and hardware issues. Any formal questions or concerns about the content, text or information contained within the body of this dictation should be directly addressed to the provider for clarification.
== END 2025-05-23 23:59 | disposition home or self-care (01) ==
LOC: SCTC 09:40
PROVIDERS: PCP Student in an Organized Health Care Education/Training Program; Referring Provider Student in an Organized Health Care Education/Training Program; Visit Provider Radiology Therapeutic Radiology
DX: C54.1 Malignant neoplasm of endometrium (principal); C78.02 Secondary malignant neoplasm of left lung; C78.01 Secondary malignant neoplasm of right lung; Z90.710 Acquired absence of both cervix and uterus; Z92.3 Personal history of irradiation; R63.4 Abnormal weight loss
CPT/HCPCS: 99212; G0463

== ENCOUNTER → 2025-05-07 | Outpatient (CLI) | payer MEDICARE, MEDICAID, SELFPAY ==
--- NOTE | 2025-05-07 | XR_ITS ---
Examination: CT chest with intravenous contrast CT abdomen with intravenous contrast CT pelvis with intravenous contrast 2-D coronal and sagittal reconstructions Time of exam: May 07, 2025 1638 hours, comparison PET/CT scan April 06, 2025, CT chest March 25, 2025 CTDI: vol (mGy) : 11.3 DLP: (mGycm): 428 Technique: Multiple axial images of the chest, abdomen and pelvis with intravenous contrast, 3.0 mm slice thickness. Images obtained post intravenous injection Isovue 370 60 cc. 2-D sagittal and coronal reconstructions. Low dose protocols were performed. One or more of the following dose reduction techniques were used; automated exposure control, adjustment of the mA and/or KV according to patient size, use of iterative reconstruction technique. Findings: No thoracic aortic aneurysm dilatation or dissection No pulmonary artery filling defects No interval mediastinal lymphadenopathy Numerous metastatic pulmonary nodules which show progression in size and show progression with new pulmonary nodules throughout both lungs For instance the pulmonary nodule in the anterior segment right upper lobe measures 23 mm on the PET/CT scan October 22, 2024 and currently measures 30 mm The pulmonary mass in the right lower lobe measures 22 mm on October 22, 2024 compared to 32 mm on the current study Small bilateral pleural effusions No focal liver or splenic lesions No pancreatic mass End-stage right hydronephrotic sac No left hydronephrosis Marked progression of abdominal lymphadenopathy, for instance the main necrotic abdominal lymph node mass right lateral to the aorta measures 4 cm in dimension, current study compared to 2.6 cm on the PET CT scan October 22, 2024 No bowel obstruction Absent uterus Rectal wall on this study measures up to 10 mm, clinical correlation advised Contracted urinary bladder with wall thickening up to 9 mm Moderate osteopenia No pathologic fractures IMPRESSION: Marked progression of pulmonary nodular metastatic disease compared with the CT scan October 22, 2024 Progression of abdominal lymphadenopathy compared to PET CT scan October 22, 2024 Mild diffuse rectal wall thickening, clinical correlation advised Urinary bladder wall thickening up to 9 mm, differential would include cystitis
== END | disposition home or self-care (01) ==
PROVIDERS: PCP Specialist; Referring Provider Specialist; Visit Provider Specialist
DX: R59.0 Localized enlarged lymph nodes (principal); N32.89 Other specified disorders of bladder; C78.00 Secondary malignant neoplasm of unspecified lung; C49.9 Malignant neoplasm of connective and soft tissue, unspecified; K62.89 Other specified diseases of anus and rectum
CPT/HCPCS: 71260; 74177; A4649; Q9967

== ENCOUNTER → 2025-05-11 | Outpatient (CLI) | payer MEDICARE, MEDICAID, SELFPAY ==
[2025-05-11 16:35] LABS: Basophils # (Auto) 0.0 Thou/mm3 (0.0-0.2); Basophils % (Auto) 1 % (0-2.5); Eosinophils # (Auto) 0.1 Thou/mm3 (0.0-0.5); Eosinophils % (Auto) 2 % (0-10); Hematocrit 28.9 % (36.0-46.0); Hemoglobin 9.3 g/dL (12.0-16.0); Immature Granulocytes Auto 0.01 Thou/mm3 (0.00-0.00); Lymphocytes # (Auto) 0.4 Thou/mm3 (1.0-4.8); Lymphocytes % (Auto) 13 % (10-50); Mean Corpuscular HGB Conc 32.2 g/dl (31.0-37.0); Mean Corpuscular Hemoglobin 29.0 pg (25.0-35.0); Mean Corpuscular Volume 90 fL (80-100); Monocytes # (Auto) 0.1 Thou/mm3 (0.0-0.8); Monocytes % (Auto) 2 % (0-12); Neutrophils # (Auto) 2.4 Thou/mm3 (1.8-7.7); Neutrophils % (Auto) 82 % (37-80); Nucleated Red Blood Cell # 0.00 Thou/mm3 (0.00-0.00); Nucleated Red Blood Cell % 0 /100 WBC (0); Platelet Count 117 Thou/mm3 (140-440); RDW Standard Deviation 42.4 fL (36.4-46.3); Red Blood Count 3.21 Miln/mm3 (4.00-5.20); White Blood Count 2.9 Thou/mm3 (3.6-11.0)
[2025-05-11 16:53] LABS: T4 (Thyroxine) 8.6 mcg/dL (4.5-10.9)
[2025-05-11 17:02] LABS: Alanine Aminotransferase < 7 U/L (10-49); Albumin, Serum 4.3 gm/dL (3.4-4.8); Albumin/Globulin Ratio 2.7 (1.2-2.2); Alkaline Phosphatase 48 U/L (46-116); Anion Gap 8 (7-16); Aspartate Amino Transferase 14 U/L (0-34); BUN/Creatinine Ratio 18 Ratio (12-20); Bilirubin,Total 0.3 mg/dL (0.3-1.2); Blood Urea Nitrogen 11 mg/dL (9-23); Calcium 9.9 mg/dL (8.3-10.6); Calcium (Corrected) 9.9 mg/dL (8.5-10.1); Carbon Dioxide 32.3 mMol/L (20.0-31.0); Chloride 101 mMol/L (98-107); Creatinine (Component) 0.6 mg/dL (0.6-1.3); Globulin 1.6 gm/dL (2.3-3.5); Glucose 92 mg/dL (74-106); Osmolality,Calculated 280 (275-295); Potassium 3.4 mMol/L (3.4-5.1); Sodium 141 mMol/L (136-145); Thyroid Stimulating Hormone 1.88 uIU/mL (0.55-4.78); Total Protein 5.9 gm/dL (5.7-8.2); eGFR > 60 See Note
== END | disposition home or self-care (01) ==
LOC: SLDO 15:54
PROVIDERS: Referring Provider Internal Medicine Hematology & Oncology; Visit Provider Internal Medicine Hematology & Oncology
DX: Z01.812 Encounter for preprocedural laboratory examination (principal); C55 Malignant neoplasm of uterus, part unspecified
CPT/HCPCS: 36415; 80053; 84436; 84443; 85025

== ENCOUNTER 2025-06-10 11:00 | Outpatient (RCR) | payer MEDICAID, SELFPAY ==
--- NOTE | 2025-06-10 12:12 | CTCFLWUP_ITS ---
[facility] [address] [place], [place] [address] FOLLOW-UP NOTE Date: 06/10/2025 MR#: [id number] Name: JHONATAN KRAMER : 1960 Dx: C55 Malignant neoplasm of uterus, part unspecified Identification. Patient with stage IV carcinosarcoma uterus with lung mets and bone mets. Initial GENNY/BSO 08/05/2021 but due to rapid pelvic currents radiotherapy to pelvis completed 12/22/2021 then received 4 cycles of carboplatin Taxol 01/23/2022 through 03/31/2022. Additional radiotherapy to sacral region along with SBRT completed 06/16/2024. Most recent PET 04/06/2025 showed progression of abdominal. Lymphadenopathy pulmonary nodules. Patient was referred to [place] where she has been getting CarboTaxol Doxil and nivolumab combination weekly. Recently patient was informed that because of insurance issues can no longer be seen there. As I see her today patient appears well has little to no pain in her pelvic area which was treated in the past. Takes only occasional hydrocodone every 6 as needed. Assessment. 1. A.#1 Carcinosarcoma uterus stage IV prior hysterectomy postop radiation chemo with progression of lesions in chest abdomen noted on recent imaging studies. #2. Recent chemo in [place] reportedly could not be continued due to insurance issues. #3.. Follow-up with Dr. Armando next month. #4. I will see her again in 3 months for pain management. Patient appears to be comfortable with only occasional need for hydrocodone 10. Electronically signed by: Piyush Whiting M.D. 06/10/2025 12:10 PM
== END 2025-06-22 23:59 | disposition home or self-care (01) ==
LOC: SCTC 11:00
PROVIDERS: PCP Student in an Organized Health Care Education/Training Program; Referring Provider Radiology Therapeutic Radiology; Visit Provider Radiology Therapeutic Radiology
DX: C55 Malignant neoplasm of uterus, part unspecified (principal); C78.00 Secondary malignant neoplasm of unspecified lung; C79.51 Secondary malignant neoplasm of bone; Z92.21 Personal history of antineoplastic chemotherapy
CPT/HCPCS: 99213; G0463

== ENCOUNTER 2025-06-17 13:03 | Emergency (ER) | payer MEDICAID, SELFPAY ==
[2025-06-17 13:50] VITALS: BP 97/62; PULSE 93; RESP 18; TEMP 36.9; O2SAT 98; BMI 19.1
--- NOTE | 2025-06-17 13:54 | XR_ITS ---
Examination: PA lateral chest 2 views TECHNIQUE: Upright PA lateral chest 2 views Date and time: June 17, 2025, 1419 hours, comparison September 08, 2024 INDICATIONS: Coughing left-sided rib pain beginning one week ago. FINDINGS: Interval significant bilateral pneumonia, with soft nodular densities Normal heart size Right internal jugular Port-A-Cath tip satisfactory position IMPRESSION: Interval significant bilateral pneumonia Soft nodular densities throughout both lungs, please see the CT chest report May 07, 2025
--- NOTE | 2025-06-17 13:55 | PD.EDRME ---
Rapid Medical Screening Exam RME Arrival date/time: 06/17/25 13:03 65-year-old female with history of endometrial cancer presents to the emergency room today for complaints of generalized fatigue cough congestion and left-sided rib pain Chief Complaint: Flu Like Symptoms Time Seen by Provider: 06/17/25 13:54 Vital signs: Vital Signs Temperature 98.5 F 06/17/25 13:50 Pulse Rate 93 06/17/25 13:50 Respiratory Rate 18 06/17/25 13:50 Blood Pressure 97/62 06/17/25 13:50 Pulse Oximetry (%) 98 06/17/25 13:50 Oxygen Delivery Method Room Air 06/17/25 13:50
[2025-06-17 14:30] LABS: Collection Type, Urine Clean Catch
[2025-06-17 14:51] LABS: Bilirubin,Urine Negative (Negative); Blood,Urine Negative (Negative); Clarity,Urine Clear (Clear/Hazy); Color,Urine Yellow (Lt Yel-Yel); Glucose, Urine Negative (Negative); Ketones,Urine Negative (Negative); Leukocyte Esterase,Urine Negative (Negative); Nitrite,Urine Negative (Negative); PH,Urine 6.0 (5.0-7.0); Protein,Urine Trace (Neg - Trace); RBC,Urine 3 /hpf (0-3); Specific Gravity,Urine 1.026 (1.001-1.035); Squamous Epithelial Cell,Urine < 1 /hpf (0-5); Urobilinogen,Urine Negative mg/dL (0.0-1.0); WBC,Urine 4 /hpf (0-5)
[2025-06-17 15:11] LABS: Lactate (Lactic Acid) 1.0 mMol/L (0.4-2.0)
[2025-06-17 15:12] LABS: Basophils # (Auto) 0.1 Thou/mm3 (0.0-0.2); Basophils % (Auto) 1 % (0-2.5); Eosinophils # (Auto) 0.3 Thou/mm3 (0.0-0.5); Eosinophils % (Auto) 4 % (0-10); Hematocrit 34.1 % (36.0-46.0); Hemoglobin 11.0 g/dL (12.0-16.0); Immature Granulocytes Auto 0.04 Thou/mm3 (0.00-0.00); Lymphocytes # (Auto) 0.4 Thou/mm3 (1.0-4.8); Lymphocytes % (Auto) 5 % (10-50); Mean Corpuscular HGB Conc 32.3 g/dl (31.0-37.0); Mean Corpuscular Hemoglobin 29.4 pg (25.0-35.0); Mean Corpuscular Volume 91 fL (80-100); Monocytes # (Auto) 0.6 Thou/mm3 (0.0-0.8); Monocytes % (Auto) 7 % (0-12); Neutrophils # (Auto) 7.8 Thou/mm3 (1.8-7.7); Neutrophils % (Auto) 84 % (37-80); Nucleated Red Blood Cell # 0.00 Thou/mm3 (0.00-0.00); Nucleated Red Blood Cell % 0 /100 WBC (0); Platelet Count 198 Thou/mm3 (140-440); RDW Standard Deviation 52.1 fL (36.4-46.3); Red Blood Count 3.74 Miln/mm3 (4.00-5.20); White Blood Count 9.2 Thou/mm3 (3.6-11.0)
[2025-06-17 15:41] LABS: Alanine Aminotransferase < 7 U/L (10-49); Albumin, Serum 4.6 gm/dL (3.4-4.8); Albumin/Globulin Ratio 2.2 (1.2-2.2); Alkaline Phosphatase 59 U/L (46-116); Anion Gap 11 (7-16); Aspartate Amino Transferase 14 U/L (0-34); BUN/Creatinine Ratio 17 Ratio (12-20); Bilirubin,Total 0.6 mg/dL (0.3-1.2); Blood Urea Nitrogen 12 mg/dL (9-23); Calcium 9.9 mg/dL (8.3-10.6); Calcium (Corrected) 9.9 mg/dL (8.5-10.1); Carbon Dioxide 27.7 mMol/L (20.0-31.0); Chloride 103 mMol/L (98-107); Creatinine (Component) 0.7 mg/dL (0.6-1.3); Estimated Creatinine Clearance 62.8 mL/min (>60); Globulin 2.1 gm/dL (2.3-3.5); Glucose 121 mg/dL (74-106); Lipase 26 U/L (12-53); Osmolality,Calculated 283 (275-295); Potassium 3.4 mMol/L (3.4-5.1); Procalcitonin 0.05 ng/ml (0.0-0.49); Sodium 142 mMol/L (136-145); Total Protein 6.7 gm/dL (5.7-8.2); Troponin I 0.022 ng/mL (0.0-0.045); eGFR > 60 See Note
--- NOTE | 2025-06-17 17:13 | PD.EDURI ---
Upper Respiratory Inf. RME/HPI General Chief Complaint: Flu Like Symptoms Stated Complaint: LEFT RIB PAIN, COUGH Time Seen by Provider: 06/17/25 13:54 Arrival date/time: 06/17/25 13:03 RME / HPI RME / HPI Narrative: 65-year-old female with history of endometrial cancer presents to the emergency room today for complaints of generalized fatigue cough congestion and left-sided rib pain. Onset of symptoms for the last 3 days, severity of symptoms moderate. Denies any fever denies any shortness of breath denies any other complaints. Patient told me that her cancer already spread to the lung. She is followed by Dr. Alonso oncologist. This Related Data Home Medications ?Medication ?Instructions ?Recorded ?Confirmed dexamethasone 4 mg tablet 4 tab PO QMONTH 04/22/22 04/22/22 diphenhydramine HCl 50 mg capsule 50 cap PO QMONTH 04/22/22 04/22/22 (Banophen) famotidine 20 mg tablet 20 tab PO QMONTH 04/22/22 04/22/22 ondansetron HCl 8 mg tablet 8 mg PO QMONTH prior to chemo 04/22/22 04/22/22 treatment Previous Rx's ?Medication ?Instructions ?Recorded lactulose 10 gram/15 mL (15 mL) 20 g (30 mL) PO BID PRN 11/17/22 oral solution constipation #600 mL amoxicillin 875 mg-potassium 1 tab PO BID #14 tabs 06/17/25 clavulanate 125 mg tablet azithromycin 250 mg tablet 250 mg PO QDAY 4 days #4 tabs 06/17/25 (Zithromax) Allergies Allergy/AdvReac Type Severity Reaction Status Date / Time Sulfa (Sulfonamide Allergy Verified 06/17/25 13:06 Antibiotics) Review of Systems Review of Systems Narrative Review of Systems: Review of system reviewed and within normal limits except mentioned in HPI ED Exam Narrative Physical exam: VITAL SIGNS: Reviewed. GENERAL APPEARANCE: Alert and interactive, follows commands, no acute distress, HEAD AND FACE: Non-traumatic. ENT: PERRL, pink conjunctivitis, eyelid no trauma, Mucous membrane moist. NECK: Supple, nontender, no nuchal rigidity. CHEST: No tenderness, no crepitus, no paradoxical movement, no retractions. LUNGS: CSymmetric, + bibasilar rales, no wheezing, no ronchi, no stridor, decreased breath sounds bilaterally. HEART: Regular rate, regular rhythm, no murmur, no gallops. ABDOMEN: Soft, positive bowel sounds, nondistended, no guarding, nontender, no rebound, no masses, RECTAL: Deferred. GENITAL: Deferred. NEUROLOGICAL: Gross motor function intact sensory function intact, Appropriate for age. MUSCULOSKELETAL: low back nontender, full range of motion. EXTREMITIES: Nontender, full range of motion. SKIN: Color pink, dry, no rash, no lacerations, no abrasions, no contusions. LYMPHATICS: Deferred. Course Quality Measures none Orders Category Date Time Status Bedside COVID-19 Antigen Test NOW Care 06/17/25 13:54 Active Bedside Influenza A&B Antigen Test NOW Care 06/17/25 13:54 Active XR chest 2V Stat Exams 06/17/25 13:54 Completed Blood Culture (Lab) Stat Lab 06/17/25 14:55 Received CBC Stat Lab 06/17/25 14:55 Completed Comprehensive Metabolic Panel Stat Lab 06/17/25 14:55 Completed Lactate (Lactic Acid) Stat Lab 06/17/25 14:55 Completed Lipase Stat Lab 06/17/25 14:55 Completed Procalcitonin Stat Lab 06/17/25 14:55 Completed Troponin I Stat Lab 06/17/25 14:55 Completed Urinalysis Stat Lab 06/17/25 14:18 Completed Urine Culture Stat Lab 06/17/25 14:18 Received 1,000 mg IM w/Lido* 1% Med 06/17/25 17:13 Ordered cefTRIAXone [Rocephin] 1,000 mg Lidocaine 1% 20 ml [Xylocaine 1% 20 ML] 2.1 ml IM X1 Azithromycin Po [Zithromax PO] Med 06/17/25 17:13 Once 500 mg PO X1 ONE Vital Signs Vital signs: Vital Signs Temperature 98.5 F 06/17/25 13:50 Pulse Rate 93 06/17/25 13:50 Respiratory Rate 18 06/17/25 13:50 Blood Pressure 97/62 06/17/25 13:50 Pulse Oximetry (%) 98 06/17/25 13:50 Oxygen Delivery Method Room Air 06/17/25 13:50 Upper Respiratory Infection MDM Narrative MDM Narrative:: 65-year-old female with history of endometrial cancer presents to the emergency room today for complaints of generalized fatigue cough congestion and left-sided rib pain. Onset of symptoms for the last 3 days, severity of symptoms moderate. Denies any fever denies any shortness of breath denies any other complaints. Patient told me that her cancer already spread to the lung. She is followed by Dr. Alonso oncologist. Patient CBC showed no leukocytosis. CMP unremarkable. Urinalysis no UTI. Chest x-ray Interval significant bilateral pneumonia. Troponin is normal. Soft nodular densities throughout both lungs, please see the CT chest report May 07, 2025 Patient received ceftriaxone IM and Zithromax p.o. For pneumonia. Currently patient is satting 98% on room air. Patient data External records reviewed:: None Clinical information provided by:: patient Social determinants that could affect healthcare access:: none Patient has the following chronic illnesses:: Endometrial cancer with mets to the lung How is presenting disease/condition affected by chronic disease/condition?: exacerbated by Evaluation data The following diagnostics were reviewed and interpreted by me:: lab results and radiology exam(s) Lab and/or radiology exams considered but not ordered:: None Interpretation Summary: See results MDM Medications / Prescriptions Medications or Prescriptions considered but not ordered:: None Medication administrations:: Ceftriaxone IM and Zithromax Consultations Consultation(s) initiated? (list below): No Diagnosis Upper Respiratory Differential Diagnosis: upper respiratory infection and other (Pneumonia) Most likely diagnosis given after review of the tests above:: Pneumonia Admission Indicated Admission indicated?: not indicated Admission Request Was there a request for admission?: No Disposition Plan Disposition Plan: Discharge Discharge Attestation Discharge Attestation: The patient and all family members were given an opportunity to ask questions and understood the discharge instructions. Discharge instructions specifically effects, indications for sooner follow up or return to the emergency department, and the expected course of current diagnosis. Patient condition: Stable Discharge Plan Plan Patient Disposition: HOME (Self Care) Discharge Disposition comment: Stable Prescriptions/Referrals Prescriptions/Med Rec: New azithromycin [Zithromax] 250 mg tablet 250 mg PO QDAY 4 Days Qty: 4 0RF Rx Instructions: start on day 2 of therapy amoxicillin-pot clavulanate 875-125 mg tablet 1 tab PO BID Qty: 14 0RF No Action famotidine 20 mg tablet 20 tab PO QMONTH Patient Comments: TAKE 1 TABLET BY MOUTH 12 HOURS AND 1 TABLET 6 HOURS BEFORE CHEMO Rx Instructions: taken prior to chemo treatment. diphenhydramine HCl [Banophen] 50 mg capsule 50 cap PO QMONTH Patient Comments: TAKE 1 CAPSULE BY MOUTH 12 HOURS BEFORE AND 1 CAPSULE 6 HOURS BEFORE CHEMO Rx Instructions: taken prior to chemo treatment. ondansetron HCl 8 mg tablet 8 mg PO QMONTH Patient Comments: TAKE 1 TABLET BY MOUTH THREE TIMES A DAY NEEDED FOR NAUSEA Rx Instructions: taken prior to chemo treatment. dexamethasone 4 mg tablet 4 tab PO QMONTH Patient Comments: TAKE 5 TABLETS BY MOUTH 12 HOURS BEFORE AND 5 TABLETS 6 HOURS BEFORE CHEMO Rx Instructions: taken prior to chemo treatment. lactulose 10 gram/15 mL (15 mL) solution 20 g PO BID PRN (Reason: constipation) Qty: 600 0RF Referrals: Pelon Covingtno MD [Primary Care Provider, Internal Medicine] - In 1 week Problem List Clinical Impression: PNA (pneumonia) Patient/Caregiver Discharge Instructions Discharge Activity: activity as tolerated Education Materials: Treating Pneumonia Additional Instructions: Thank you for the opportunity for serving you today. You are stable for discharged . You are advised to: Follow-up with your PCP in 1 to 2 days Return to ED for worsening of symptoms Increase oral fluids Take medication as prescribed Print Language: British Stand Alone Forms: Anna Award Info., Patient Portal Info Letter DENISE/EDMUND Supervising Physician DENISE/EDMUND Supervising Physician: MD Venus
[2025-06-17] MEDS: cefTRIAXone 1,000 MG, LIDOCAINE 1% 20 ML 2.1 ML IM (17:58)
[2025-06-17] MEDS: AZITHROMYCIN 250 MG TABLET 500 MG PO (17:58)
[2025-06-17 18:11] VITALS: BP 97/65; PULSE 86; RESP 16; TEMP 36.9; O2SAT 96
== END 2025-06-17 18:21 | disposition home or self-care (01) ==
PROVIDERS: Nurse Practitioner Primary Care; Emergency Provider Emergency Medicine; PCP Student in an Organized Health Care Education/Training Program
DX: J18.9 Pneumonia, unspecified organism (principal)
CPT/HCPCS: 36415; 71046; 80053; 81001; 83605; 83690; 84145; 84484; 85025; 87040; 87086; 87400; 87811; 96372; 99283; J0696; J3490; A9270

== ENCOUNTER → 2025-06-27 | Outpatient (CLI) | payer MEDICAID, SELFPAY ==
--- NOTE | 2025-06-27 10:00 | ECHO_ITS ---
Transthoracic Echo Report Ht (in): 63 Wt (lb): 110 Exam Location: Echo Lab Status: Preadmit Director Dental Services: Kay Cook Indications: Procedure Performed: BP: 97 / 74 HR: Rhythm: Sinus Technical Quality: Poor MEASUREMENTS (Male / Female) Normal Values 2D ECHO LV Diastolic Diameter PLAX 4.0 cm 4.2 - 5.9 / 3.9 - 5.3 cm LV Systolic Diameter PLAX 3.1 cm IVS Diastolic Thickness 0.7 cm 0.6 - 1.0 / 0.6 - 0.9 cm LVPW Diastolic Thickness 0.8 cm 0.6 - 1.0 / 0.6 - 0.9 cm LV Relative Wall Thickness 0.4 LVOT Diameter 1.8 cm Aortic Root Diameter 2.7 cm LV Ejection Fraction MOD BP 46.2 % >= 55 % LV Ejection Fraction MOD 4C 46.2 % LV Ejection Fraction 4C AL 44.9 % LV Ejection Fraction MOD 2C 49.9 % LV Ejection Fraction 2C AL 51.7 % LA Volume Index 21.8 cm?/m? 16 - 28 cm?/m? M-MODE Aortic Root Diameter MM 2.6 cm LA Systolic Diameter MM 2.8 cm LA Ao Ratio MM 1.1 AV Cusp Separation MM 1.5 cm DOPPLER AV Peak Velocity 145.0 cm/s AV Peak Gradient 8.4 mmHg AV Mean Gradient 5.0 mmHg AV Velocity Time Integral 30.6 cm LVOT Peak Velocity 96.8 cm/s LVOT Peak Gradient 3.7 mmHg LVOT Velocity Time Integral 20.0 cm AV Area Cont Eq vti 1.7 cm? AV Area Cont Eq pk 1.7 cm? MV Area PHT 5.6 cm? Mitral E Point Velocity 62.6 cm/s Mitral A Point Velocity 76.6 cm/s Mitral E to A Ratio 0.8 LV E' Lateral Velocity 6.1 cm/s Mitral E to LV E' Lateral Ratio 10.3 LV E' Septal Velocity 5.0 cm/s Mitral E to LV E' Septal Ratio 12.5 PV Peak Velocity 78.7 cm/s PV Peak Gradient 2.5 mmHg FINDINGS Left Ventricle Normal left ventricular size, wall thickness, systolic function with no obvious regional wall motion abnormalities. There is grade I diastolic dysfunction of the left ventricle (impaired relaxation pattern). The ejection fraction is visually estimated at 50-55 %. Right Ventricle The right ventricle is normal in size and systolic function. Left Atrium The left atrium is normal by two-dimensional, color flow and Doppler imaging with no structural abnormalities, no thrombus formation present. Right Atrium The right atrium is normal by two-dimensional imaging, color flow and Doppler imaging with no structural abnormalities, no thrombus formation present. Atrial Septum The interatrial septum appears normal with no evidence of a shunt. Aorta The aorta is normal by two-dimensional, color flow and Doppler interrogation. Mitral Valve The mitral valve is normal by two-dimensional, color flow and Doppler interrogation. There is no significant mitral valve regurgitation, stenosis or prolapse. Aortic Valve The aortic valve is trileaflet and normal by two-dimensional, color flow and Doppler interrogation. There is no significant aortic valve regurgitation. Tricuspid Valve The tricuspid valve is normal by two-dimensional, color flow and Doppler interrogation. There is trace tricuspid valve regurgitation. Pulmonic Valve The pulmonic valve is not well visualized. There is no significant pulmonic valve regurgitation. Vessels The pulmonary artery appears normal. The inferior vena cava pulmonary and hepatic veins appear normal. Pericardium The pericardium is normal by two-dimensional imaging. There is no significant pericardial effusion. CONCLUSIONS Indication: Malignant neoplasm of corpus uteri, unspecified Normal LV size and wall thickness. There is grade I diastolic dysfunction. Estimated EF at 55-60%. The RV is normal in size and systolic function. Trace TR. mild Aortic valve sclerosis without stenosis No pericardial effusion Anthony Jeffers (Electronically Signed) Final Date: 27 June 2025 16:53
== END | disposition home or self-care (01) ==
PROVIDERS: PCP Physician Assistant; Referring Provider Internal Medicine Hematology & Oncology; Visit Provider Internal Medicine Hematology & Oncology
DX: I35.8 Other nonrheumatic aortic valve disorders (principal); I07.1 Rheumatic tricuspid insufficiency; I50.30 Unspecified diastolic (congestive) heart failure; C54.9 Malignant neoplasm of corpus uteri, unspecified
CPT/HCPCS: 93306

== ENCOUNTER 2025-07-05 13:57 | Outpatient (RCR) | payer MEDICAID, SELFPAY ==
--- NOTE | 2025-07-04 22:22 | CTCFLWUP_ITS ---
Patient: KATRINA FELDMAN : 1960 Page 9 of 11 FOLLOW UP NOTE DATE OF SERVICE: 06/29/2025 NAME: KATRINA FELDMAN ACCOUNT: [id number] : 1960 AGE: 65 INTERVAL HISTORY: Patien is receiving treatment at [facility] and so number Kenia Paige. Patient is to being treated with carbo Taxol Doxil and nivolumab combination weekly. Patient says that she was unable to receive her last treatment as her insurance is changed and patient have lost Medicare. Patient is requesting to get bedside commode shower chair to help her in the home. Patient also have hard time getting her labs done. Patient is unable to drive. Medications and Supplements - Pembrolizumab - Lenvatinib - Doxil - Vitamin D - Was taking sporadically, trying to take daily Review of Systems General: Positive for weight loss, decreased appetite, fatigue. Respiratory: Positive for shortness of breath, low oxygen levels with exertion. Gastrointestinal: Positive for loss of taste. Objective: Vital Signs - Oxygen Saturation: 95% (at rest), 88% (after walking) - Weight: 107 kg Physical Examination Respiratory: Oxygen saturation dropped to 88% with exertion during walk test. Laboratory, Imaging, and Diagnostic Test Results - Oxygen saturation: 70% (during current visit) - Previous oxygen saturation measurements: - 78% (morning of current visit) - 87% (occasionally) ONCOLOGY HISTORY:?[facility] Hx? 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 Status post total abdominal hysterectomy and bilateral salpingo-oophorectomy, pelvic and aortic lymphadenectomy (07/26/2021). Biopsy of the vaginal mass positive for carcinosarcoma (09/13/2021) S/p 4 cycles of carboplatin and Taxol (01/23/2022 - 04/10/2022) S/p right lung hypermetabolic pulmonary nodule biopsy negative for malignancy (12/20/2021) Was on weekly carboplatin and Taxol (01/15/2023?06/27/2023). Last S/p radiation therapy to the right sacrum (02/04/2023 - 02/13/2023) S/p radiation therapy to the pelvis (11/20/2021?12/22/2021) Radiation of the sacral boost 02/26/2024? Progressed on lenvatinib and pembrolizumab. (04/02/2024 - 05/14/2024) B12 deficiency. Localized radiation to the sacrum SBRT completed in May 2024 Plan is on single agent Doxil DATE OF DIAGNOSIS: 05/26/2021 STAGE/TNM: Stage IV TREATMENT HISTORY: Care?Plan Start?Date Cycle Day Intent CARBOplatin?AUC?6;?PACLitaxel?175 01/23/2022 1 21 Curative?(primary) B?12 11/09/2021 1 28 Palliative PACLItaxel?60mg/m*2?+?Carboplatin?AUC?2?-weekly?x?18weeks?2 01/15/2023 1 7 Palliative Pembro?and?Lenvatinib 04/02/2024 1 21 Palliative Doxil?60/m2?sarcoma?shek 06/25/2024 1 21 Palliative Pembro?and?Lenvatinib 03/09/2025 5 21 Palliative HISTORY OF PRESENT ILLNESS: Katrina Feldman is a 65-year-old ENG speaking female without any significant past medical history has the following oncology history. 2016: Patient started having intermittent vaginal bleeding which over last 5 years has steadily worsened. Apparently patient was seeing multiple physicians according to her. 06/15/2021: Dr. Rodriguez did endometrial biopsy. 07/26/2021: Ms. Feldman had total abdominal hysterectomy, bilateral salpingo- oophorectomy, left ureterolysis, bilateral pelvic and aortic lymphadenectomy by Dr. Pelon Hassan in [place]. 09/13/2021:The patient had pelvic examination under anesthesia and biopsy of the vaginal mass 11/11/2021: PET/CT scan? 11/20/2021?12/22/2021: Ms. Feldman had 4500 cGy radiation therapy to the pelvis. 12/20/2021: CT-guided biopsy of the right lung hypermetabolic pulmonary nodule 01/23/2022: Patient is started on carboplatin and paclitaxel chemotherapy. 02/10/2022: CT scan of the chest abdomen and pelvis with IV contrast?numerous metastatic pulmonary nodules. No abdominal or pelvic lymphadenopathy. 01/23/2022?04/10/2022: Ms. Feldman had 4 cycles of carboplatin and Taxol. She decided to discontinue chemotherapy. 11/17/2022: CT scan of the abdomen and pelvis with IV contrast 12/13/2022: PET/CT scan? 01/15/2023: Ms. Feldman is started on weekly carboplatin and Taxol. Ms. Feldman received last dose of carboplatin on 03/14/2023. Carboplatin was discontinued due to national short supply. Patient was continued on single agent Taxol. 04/17/2023: CT scan of the chest without IV contrast and CT scan of the abdomen and pelvis with IV contrast?? 06/26/2023: CT scan of the chest abdomen and pelvis with IV contrast 06/27/2023: The patient received last dose of weekly Taxol. 11/27/2023: CT scan of the chest abdomen and pelvis with IV contrast 01/31/2024: MRI of the pelvis with IV contrast 02/27/2024: PET/CT scan 03/04/2024: Lenvima 10 mg p.o. twice daily prescribed. Patient is taking Lenvima for 3 days. She started developing loss of voice, weakness as well as dizziness. Patient decided not to take Lenvima anymore. 04/02/2024: Ms. Feldman received first dose of pembrolizumab. 2023: CT angiogram of the chest done 05/14/2024: Ms. Feldman had last dose of pembrolizumab. OTHER MEDICAL HISTORY/CONDITIONS: FAMILY HISTORY: ?Clone Family Hx? 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 Compazine - 10 mg 1 tab three times a day 2. docusate sodium - 100 mg 1 tab As needed 3. HYDROcodone-acetaminophen - 10-325 mg 1 tab q6 4. Robitussin DM Max - 10-200 mg/5 mL 15 mL Three times a day 5. Tessalon Perles - 100 mg 1 Capsule Three times a day 6. ZOFRAN ODT - 8 mg 1 tab Every 8 Hours?[facility]ra Meds? Medications Last Reconciled by Kimberlyn Street MD on 06/29/2025 ALLERGIES: sulfasalazine REVIEW OF SYSTEMS: A complete 14-point review of systems was performed and is negative except as noted in interval history. PHYSICAL EXAMINATION:?[facility] PE? VITAL SIGNS: Temperature?99.2, B/P?104/69, Oxygen?Saturation?94% Weight?110?lbs (Change?since?06/10/25:?1?lbs) PAIN: 0 - No pain ECOG Performance Status: 1 - Symptomatic; ambulatory; restricted in strenuous activity GENERAL APPEARANCE: Appears well, in no apparent distress, appropriately interactive. HEENT: Normocephalic, no temporal wasting, normal conjunctiva, no scleral icterus, normal hearing, lips without lesions, neck normal range of motion. CARDIOVASCULAR: Not assessed. PULMONARY: Normal respiratory effort, no respiratory distress or use of accessory muscles, speaking in full sentences, no tachypnea. EXTREMITIES: No pedal edema or cyanosis. SKIN: Normal skin appearance. NEUROLOGIC: Alert and oriented x4. PSHYCHIATRIC: Appropriate affect, mood normal, behavior normal, intact thought and speech. LABORATORY DATA: I have personally reviewed and interpreted each of the patient?s relevant lab tests, abnormal findings are below: Date 05/11/25 06/17/25 ??WHITE?BLOOD?COUNT?(Thou/mm3) 2.9?L 9.2 ??RED?BLOOD?COUNT?(Miln/mm3) 3.21?L 3.74?L ??HEMOGLOBIN?(gm/dl) 9.3?L 11.0?L ??HEMATOCRIT?(%) 28.9?L 34.1?L ??PLATELET?COUNT?(Thou/mm3) 117?L 198 ??NEUTROPHILS?%,?AUTO?(%) 82?H 84?H ??LYMPH?%,?AUTO?(%) 13 5?L ??NEUTROPHILS,?AUTO?(Thou/mm3) 2.4 7.8?H ??GLUCOSE,RANDOM?(mg/dL) 92 121?H ??BLOOD?UREA?NITROGEN?(mg/dL) 11 12 ??CREATININE?(mg/dL) 0.60 0.70 ??SODIUM?(mmol/L) 141 142 ??POTASSIUM?(mmol/L) 3.4 3.4 ??CHLORIDE?(mmol/L) 101 103 ??CrCl?(CandG)?(ml/min) 75.59 63.37 ??AST/SGOT?(Unit/L) 14 14 ??ALT/SGPT?(Unit/L) <?7?L <?7?L ??ALKALINE?PHOSPHATASE?(Unit/L) 48 59 ??BILIRUBIN,?TOTAL?(mg/dL) 0.3 0.6 ??PROTEIN?TOTAL?(gm/dl) 5.9 6.7 ??ALBUMIN,?SERUM?(gm/dl) 4.3 4.6 ??GLOBULIN?(gm/dl) 1.6?L 2.1?L ??ALBUMIN/GLOBULIN?RATIO 2.7?H 2.2 ??CALCIUM,?SERUM?(mg/dL) 9.9 9.9 ??CALCIUM?SERUM?(CORRECTED)?(mg/dL) 9.9 9.9 ASSESSMENT/PLAN:?Edwige Armando Assessment/Plan? Stage IV carcinosarcoma of the uterus with pulmonary mets. Status post total abdominal hysterectomy and bilateral salpingo-oophorectomy, pelvic and aortic lymphadenectomy (07/26/2021). Biopsy of the vaginal mass positive for carcinosarcoma (09/13/2021) Patient treated with 4 cycles of carboplatin Taxol and last 2 cycles were refused by patient Patient completed radiation therapy to the pelvis on 12/22/2021. CT-guided biopsy of the right lung pulmonary nodule was negative. Metastatic disease was confirmed in March 2023 at 18 weeks of Taxol was given and last dose was in June 2023 CT scan of the chest done in November showed pulmonary nodular metastatic disease and patient was started on Keytruda with lenvatinib. Patient was unable to tolerate lenvatinib and last dose of Pembro was given in April 2024 Patient received SBRT to the sacrum. Patient previously had received radiation to this area 2 times for palliative reasons Reviewed echocardiogram and is acceptable with ejection fraction 55 to 60% Patient is on Doxil and tolerating well Reviewed echocardiogram from 09/02/2024 and is stable The patient has experienced progressive weight loss, dropping from 130 lbs at the start of treatment to the current weight of 107 lbs. This suggests disease progression or treatment side effects. No imaging has been performed since September, limiting our ability to assess current disease status. The patient is experiencing dyspnea with exertion, indicating possible pulmonary involvement or progression. PET CT scan on 04/11/2025 showed progression especially in the lungs Patient was being treated at [facility] with a combination of carboplatin paclitaxel Doxil and nivolumab Patient Signatera showed downtrend showing response. Unfortunately patient cannot continue the trial secondary to insurance and financial issues I will start patient on cisplatin doxorubicin paclitaxin combination.. Patient has shown progression free survival and overall survival about 15 months compared to cisplatin Endoxcin to be seen alone Chemothelapy o Cisplatin (Platinol) 50 mglm2 IV over 60 minutes once on day 1,given second 0 Doxorubicin (Adn?amycin) 45 mglm2 Iv once on day 1, given ?rst 0 Paclitaxel (Taxol) 160 mglm2 IV over 3 hours once on day 2 Supportive therapy 0 Filgrastim (Neupogen) 5 mcglkg SC once per day on days 3 to 12 21-day cycle for 7 cycles RETURN TO CLINIC: I reviewed the diagnosis, prognosis, and recommended treatment/procedure options with the patient (and/or their legal artist representative), including the potential benefits, risks, side effects and alternative therapies. We also discussed the option of no treatment and the possibility of clinical trial participation, if applicable. All questions were addressed, and they demonstrated understanding. They provided informed consent to proceed with the proposed plan of care. BILLING AND COMPLIANCE: I reviewed external records from providers outside my specialty as summarized above. I spent a total of 50 minutes on this patient?s care on the day of their visit excluding time spent related to any billed procedures. This time includes time spent with the patient as well as time spent documenting in the medical record, reviewing patients records and tests, obtaining history, placing orders, communicating with other healthcare professionals, counseling the patient, family or caregiver, and/or care coordination for the diagnoses above. Electronically Signed by: Eduin Armando MD T: 10:20 PM CC: Pelon?Hetal? PCP: Petra Miller Referring: Petra Miller This document was completed utilizing speech recognition software. Grammatical errors, random word insertions, pronoun errors, and incomplete sentences are an occasional consequence of this system due to software limitations, ambient noise, and hardware issues. Any formal questions or concerns about the content, text or information contained within the body of this dictation should be directly addressed to the provider for clarification.
--- NOTE | 2025-07-18 23:40 | CTCFLWUP_ITS ---
Patient: KATRINA FELDMAN : 1960 Page 9 of 11 FOLLOW UP NOTE DATE OF SERVICE: 07/05/2025 NAME: KATRINA FELDMAN ACCOUNT: [id number] : 1960 AGE: 65 INTERVAL HISTORY: Patient [facility] receiving [facility] at [facility]. Unfortunately as per patient she was not given appointment for last 1 month. Patient's last Anatera testing showed great response to the treatment. Patient is to being treated with carbo Taxol Doxil and nivolumab combination weekly. Patient says that she was unable to receive her last treatment as her insurance is changed and patient have lost Medicare. Patient is requesting to get bedside commode shower chair to help her in the home. Patient also have hard time getting her labs done. Patient is unable to drive. I spoke to physician at [facility] center and I was told that they will call and rebook Ms. Feldman and give her appointment. If patient is not getting treatment at [facility] center I will start her combination chemotherapy here Medications and Supplements - Pembrolizumab - Lenvatinib - Doxil - Vitamin D - Was taking sporadically, trying to take daily Review of Systems General: Positive for weight loss, decreased appetite, fatigue. Respiratory: Positive for shortness of breath, low oxygen levels with exertion. Gastrointestinal: Positive for loss of taste. Objective: Vital Signs - Oxygen Saturation: 95% (at rest), 88% (after walking) - Weight: 107 kg Physical Examination Respiratory: Oxygen saturation dropped to 88% with exertion during walk test. Laboratory, Imaging, and Diagnostic Test Results - Oxygen saturation: 70% (during current visit) - Previous oxygen saturation measurements: - 78% (morning of current visit) - 87% (occasionally) ONCOLOGY HISTORY:?[facility] Hx? 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 Status post total abdominal hysterectomy and bilateral salpingo-oophorectomy, pelvic and aortic lymphadenectomy (07/26/2021). Biopsy of the vaginal mass positive for carcinosarcoma (09/13/2021) S/p 4 cycles of carboplatin and Taxol (01/23/2022 - 04/10/2022) S/p right lung hypermetabolic pulmonary nodule biopsy negative for malignancy (12/20/2021) Was on weekly carboplatin and Taxol (01/15/2023?06/27/2023). Last S/p radiation therapy to the right sacrum (02/04/2023 - 02/13/2023) S/p radiation therapy to the pelvis (11/20/2021?12/22/2021) Radiation of the sacral boost 02/26/2024? Progressed on lenvatinib and pembrolizumab. (04/02/2024 - 05/14/2024) B12 deficiency. Localized radiation to the sacrum SBRT completed in May 2024 Plan is on single agent Doxil DATE OF DIAGNOSIS: 05/26/2021 STAGE/TNM: Stage IV TREATMENT HISTORY: Care?Plan Start?Date Cycle Day Intent CARBOplatin?AUC?6;?PACLitaxel?175 01/23/2022 1 21 Curative?(primary) B?12 11/09/2021 1 28 Palliative PACLItaxel?60mg/m*2?+?Carboplatin?AUC?2?-weekly?x?18weeks?2 01/15/2023 1 7 Palliative Pembro?and?Lenvatinib 04/02/2024 1 21 Palliative Doxil?60/m2?sarcoma?shek 06/25/2024 1 21 Palliative Pembro?and?Lenvatinib 03/09/2025 5 21 Palliative HISTORY OF PRESENT ILLNESS: Katrina Feldman is a 65-year-old ENG speaking female without any significant past medical history has the following oncology history. 2016: Patient started having intermittent vaginal bleeding which over last 5 years has steadily worsened. Apparently patient was seeing multiple physicians according to her. 06/15/2021: Dr. Rodriguez did endometrial biopsy. 07/26/2021: Ms. Feldman had total abdominal hysterectomy, bilateral salpingo- oophorectomy, left ureterolysis, bilateral pelvic and aortic lymphadenectomy by Dr. Pelon Hassan in [place]. 09/13/2021:The patient had pelvic examination under anesthesia and biopsy of the vaginal mass 11/11/2021: PET/CT scan? 11/20/2021?12/22/2021: Ms. Feldman had 4500 cGy radiation therapy to the pelvis. 12/20/2021: CT-guided biopsy of the right lung hypermetabolic pulmonary nodule 01/23/2022: Patient is started on carboplatin and paclitaxel chemotherapy. 02/10/2022: CT scan of the chest abdomen and pelvis with IV contrast?numerous metastatic pulmonary nodules. No abdominal or pelvic lymphadenopathy. 01/23/2022?04/10/2022: Ms. Feldman had 4 cycles of carboplatin and Taxol. She decided to discontinue chemotherapy. 11/17/2022: CT scan of the abdomen and pelvis with IV contrast 12/13/2022: PET/CT scan? 01/15/2023: Ms. Feldman is started on weekly carboplatin and Taxol. Ms. Feldman received last dose of carboplatin on 03/14/2023. Carboplatin was discontinued due to national short supply. Patient was continued on single agent Taxol. 04/17/2023: CT scan of the chest without IV contrast and CT scan of the abdomen and pelvis with IV contrast?? 06/26/2023: CT scan of the chest abdomen and pelvis with IV contrast 06/27/2023: The patient received last dose of weekly Taxol. 11/27/2023: CT scan of the chest abdomen and pelvis with IV contrast 01/31/2024: MRI of the pelvis with IV contrast 02/27/2024: PET/CT scan 03/04/2024: Lenvima 10 mg p.o. twice daily prescribed. Patient is taking Lenvima for 3 days. She started developing loss of voice, weakness as well as dizziness. Patient decided not to take Lenvima anymore. 04/02/2024: Ms. Feldman received first dose of pembrolizumab. 2023: CT angiogram of the chest done 05/14/2024: Ms. Feldman had last dose of pembrolizumab. OTHER MEDICAL HISTORY/CONDITIONS: FAMILY HISTORY: ?[facility] Family Hx? 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 Compazine - 10 mg 1 tab three times a day 2. docusate sodium - 100 mg 1 tab As needed 3. HYDROcodone-acetaminophen - 10-325 mg 1 tab q6 4. Robitussin DM Max - 10-200 mg/5 mL 15 mL Three times a day 5. Tessalon Perles - 100 mg 1 Capsule Three times a day 6. ZOFRAN ODT - 8 mg 1 tab Every 8 Hours?Pal[facility]ra Meds? Medications Last Reconciled by Kimberlyn Chavez MA on 07/05/2025 ALLERGIES: sulfasalazine REVIEW OF SYSTEMS: A complete 14-point review of systems was performed and is negative except as noted in interval history. PHYSICAL EXAMINATION:?[facility] PE? VITAL SIGNS: Temperature?99.3, B/P?114/77, Oxygen?Saturation?100% on nasal cannula PAIN: 6 - Severe pain ECOG Performance Status: 2 - Symptomatic; ambulatory; capable of self-care; >50% of waking hrs. not in bed GENERAL APPEARANCE: Appears well, in no apparent distress, appropriately interactive. HEENT: Normocephalic, a lot of muscle wasting, normal conjunctiva, no scleral icterus, normal hearing, lips without lesions, neck normal range of motion. CARDIOVASCULAR: Not assessed. PULMONARY: Normal respiratory effort, no respiratory distress or use of accessory muscles, speaking in full sentences, no tachypnea. EXTREMITIES: No pedal edema or cyanosis. SKIN: Normal skin appearance. NEUROLOGIC: Alert and oriented x4. PSHYCHIATRIC: Appropriate affect, mood normal, behavior normal, intact thought and speech. LABORATORY DATA: I have personally reviewed and interpreted each of the patient?s relevant lab tests, abnormal findings are below: Date 06/17/25 07/11/25 ??WHITE?BLOOD?COUNT?(Thou/mm3) 9.2 5.4 ??RED?BLOOD?COUNT?(Miln/mm3) 3.74?L 3.72?L ??HEMOGLOBIN?(gm/dl) 11.0?L 10.8?L ??HEMATOCRIT?(%) 34.1?L 33.2?L ??PLATELET?COUNT?(Thou/mm3) 198 237 ??NEUTROPHILS?%,?AUTO?(%) 84?H 75 ??LYMPH?%,?AUTO?(%) 5?L 10 ??NEUTROPHILS,?AUTO?(Thou/mm3) 7.8?H 4.0 ??GLUCOSE,RANDOM?(mg/dL) ? 106 ??BLOOD?UREA?NITROGEN?(mg/dL) ? 12 ??CREATININE?(mg/dL) ? 0.70 ??SODIUM?(mmol/L) ? 140 ??POTASSIUM?(mmol/L) ? 3.5 ??CHLORIDE?(mmol/L) ? 101 ??CrCl?(CandG)?(ml/min) ? 63.95 ??AST/SGOT?(Unit/L) ? 16 ??ALT/SGPT?(Unit/L) ? <?7?L ??ALKALINE?PHOSPHATASE?(Unit/L) ? 60 ??BILIRUBIN,?TOTAL?(mg/dL) ? 0.5 ??PROTEIN?TOTAL?(gm/dl) ? 6.6 ??ALBUMIN,?SERUM?(gm/dl) ? 4.5 ??GLOBULIN?(gm/dl) ? 2.1?L ??ALBUMIN/GLOBULIN?RATIO ? 2.1 ??CALCIUM,?SERUM?(mg/dL) ? 9.9 ??CALCIUM?SERUM?(CORRECTED)?(mg/dL) ? 9.9 ??MAGNESIUM?(mg/dL) ? 1.2?L ASSESSMENT/PLAN:?Edwige Armando Assessment/Plan? Stage IV carcinosarcoma of the uterus with pulmonary mets. Status post total abdominal hysterectomy and bilateral salpingo-oophorectomy, pelvic and aortic lymphadenectomy (07/26/2021). Biopsy of the vaginal mass positive for carcinosarcoma (09/13/2021) Patient treated with 4 cycles of carboplatin Taxol and last 2 cycles were refused by patient Patient completed radiation therapy to the pelvis on 12/22/2021. CT-guided biopsy of the right lung pulmonary nodule was negative. Metastatic disease was confirmed in March 2023 at 18 weeks of Taxol was given and last dose was in June 2023 CT scan of the chest done in November showed pulmonary nodular metastatic disease and patient was started on Keytruda with lenvatinib. Patient was unable to tolerate lenvatinib and last dose of Pembro was given in April 2024 Patient received SBRT to the sacrum. Patient previously had received radiation to this area 2 times for palliative reasons Reviewed echocardiogram and is acceptable with ejection fraction 55 to 60% Patient is on Doxil and tolerating well Reviewed echocardiogram from 09/02/2024 and is stable The patient has experienced progressive weight loss, dropping from 130 lbs at the start of treatment to the current weight of 107 lbs. This suggests disease progression or treatment side effects. No imaging has been performed since September, limiting our ability to assess current disease status. The patient is experiencing dyspnea with exertion, indicating possible pulmonary involvement or progression. PET CT scan on 04/11/2025 showed progression especially in the lungs Patient was being treated at [facility] center with a combination of carboplatin paclitaxel Doxil and nivolumab Patient Signatera showed downtrend showing response. Unfortunately patient cannot continue the trial secondary to insurance and financial issues I will start patient on cisplatin doxorubicin paclitaxin combination.. Patient has shown progression free survival and overall survival about 15 months compared to cisplatin Endoxcin to be seen alone Chemothelapy o Cisplatin (Platinol) 50 mglm2 IV over 60 minutes once on day 1,given second 0 Doxorubicin (Adn?amycin) 45 mglm2 Iv once on day 1, given ?rst 0 Paclitaxel (Taxol) 160 mglm2 IV over 3 hours once on day 2 Supportive therapy 0 Filgrastim (Neupogen) 5 mcglkg SC once per day on days 3 to 12 21-day cycle for 7 cycles RETURN TO CLINIC: I reviewed the diagnosis, prognosis, and recommended treatment/procedure options with the patient (and/or their legal ambulatory services representative), including the potential benefits, risks, side effects and alternative therapies. We also discussed the option of no treatment and the possibility of clinical trial participation, if applicable. All questions were addressed, and they demonstrated understanding. They provided informed consent to proceed with the proposed plan of care. BILLING AND COMPLIANCE: I reviewed external records from providers outside my specialty as summarized above. I spent a total of 50 minutes on this patient?s care on the day of their visit excluding time spent related to any billed procedures. This time includes time spent with the patient as well as time spent documenting in the medical record, reviewing patients records and tests, obtaining history, placing orders, communicating with other healthcare professionals, counseling the patient, family or caregiver, and/or care coordination for the diagnoses above. Electronically Signed by: Eduin Armando MD T: 11:38 PM CC: Pelon?Hetal? PCP: Petra Miller Referring: Piyush Whiting This document was completed utilizing speech recognition software. Grammatical errors, random word insertions, pronoun errors, and incomplete sentences are an occasional consequence of this system due to software limitations, ambient noise, and hardware issues. Any formal questions or concerns about the content, text or information contained within the body of this dictation should be directly addressed to the provider for clarification.
== END 2025-07-23 23:59 | disposition home or self-care (01) ==
LOC: SCTC 13:57
PROVIDERS: PCP Physician Assistant; Referring Provider Physician Assistant; Visit Provider Internal Medicine Hematology & Oncology
DX: C54.1 Malignant neoplasm of endometrium (principal); C78.02 Secondary malignant neoplasm of left lung; C78.01 Secondary malignant neoplasm of right lung; Z90.710 Acquired absence of both cervix and uterus; Z90.722 Acquired absence of ovaries, bilateral; Z92.3 Personal history of irradiation
CPT/HCPCS: 99212; G0463

== ENCOUNTER 2025-07-11 09:35 | Emergency (ER) | payer MEDICAID, SELFPAY ==
[2025-07-11 09:48] VITALS: BP 103/65; PULSE 78; RESP 18; TEMP 37.1; O2SAT 98; BMI 19.5
--- NOTE | 2025-07-11 10:04 | XR_ITS ---
EXAMINATION: PA chest single view TECHNIQUE: Upright PA chest single view Date and time: July 11, 2025, 10:19 a.m., comparison 06/17/2025 INDICATIONS: Shortness of breath today, diagnosis endometrial cancer FINDINGS: Extensive soft and nodular parenchymal disease throughout both lungs with significant pleural disease lower left hemithorax Please see the PET CT scan report April 06, 2025 indicating pulmonary nodular metastatic disease Pneumonia left base Right internal jugular Port-A-Cath tip satisfactory position IMPRESSION: Extensive pulmonary nodular metastatic disease Pneumonia left base
--- NOTE | 2025-07-11 10:06 | PD.EDRME ---
Rapid Medical Screening Exam RME Arrival date/time: 07/11/25 09:35 This is a 65-year-old female that comes into the emergency room with complaints of shortness of breath. 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 Patient states it also spread to her bone. Patient reports that she was recently diagnosed with pneumonia June 17, 2025. Patient states she was treated. patient reports that she usually wears oxygen at night and usually by the time she wakes up she takes it off. Patient states she is not able to take off her oxygen right now she is very short of breath and also having chest pain. I have greeted and performed a focused initial assessment of this patient. Initial appropriate labs ordered at this time. A comprehensive ED assessment and evaluation of the patient and analysis of all test and completion of medical decision making process will be conducted by additional ED provider. Chief Complaint: Shortness of Breath/Dyspnea Time Seen by Provider: 07/11/25 09:49 Vital signs: Vital Signs Temperature 98.8 F 07/11/25 09:48 Pulse Rate 78 07/11/25 09:48 Respiratory Rate 18 07/11/25 09:48 Blood Pressure 103/65 07/11/25 09:48 Pulse Oximetry (%) 98 07/11/25 09:48 Oxygen Delivery Method Room Air 07/11/25 09:48
--- NOTE | 2025-07-11 10:32 | XR_ITS ---
Examination: CTA chest with intravenous contrast 2-D reconstructions 3-D reconstructions, vascular Date and time of exam: July 11, 2025, 11:41 a.m., comparison May 07, 2025 INDICATIONS: Cervical carcinoma diagnosis with pulmonary nodular metastatic disease and lymphadenopathy, chest pain shortness of breath today CTDI: vol (mGy) 8.48 DLP: (mGycm) 146 Technique: Multiple axial sections of the thorax have been obtained. 3 mm slice thickness, from below the hemidiaphragms to above the apices of the lungs. Mediastinal and lung density settings have been obtained. 2-D sagittal and coronal reconstructions. 3-D angiographic renderings, 3-D volume renderings, 3D post processing, vascular maximum intensity projections obtained. Contrast administered is 100 cc [id number]. Low dose protocols were performed. One or more of the following dose reduction techniques were used; automated exposure control, adjustment of the mA and/or KV according to patient size, use of iterative reconstruction technique. Findings: Extensive bilateral pulmonary nodular metastatic disease, several nodules increased in size compared to the May 07, 2025 exam No thoracic aortic aneurysmal dilatation Pulmonary artery segments are not enlarged No pulmonary artery emboli Marked progression of metastatic mediastinal lymphadenopathy especially right hilum Pneumonia in both lower lung zones with mild right moderate left pleural fluid Again noted advanced right hydronephrosis, right kidney partly visualized Gallbladder is not distended No pancreatic mass Prominent osteopenia with kyphosis dorsal spine IMPRESSION: Negative for pulmonary artery emboli Progression of metastatic pulmonary nodular disease and mediastinal lymphadenopathy Bibasilar pneumonia with small right moderate left pleural effusion
[2025-07-11 10:37] LABS: Basophils # (Auto) 0.0 Thou/mm3 (0.0-0.2); Basophils % (Auto) 1 % (0-2.5); Eosinophils # (Auto) 0.4 Thou/mm3 (0.0-0.5); Eosinophils % (Auto) 7 % (0-10); Hematocrit 33.2 % (36.0-46.0); Hemoglobin 10.8 g/dL (12.0-16.0); Immature Granulocytes Auto 0.01 Thou/mm3 (0.00-0.00); Lymphocytes # (Auto) 0.5 Thou/mm3 (1.0-4.8); Lymphocytes % (Auto) 10 % (10-50); Mean Corpuscular HGB Conc 32.5 g/dl (31.0-37.0); Mean Corpuscular Hemoglobin 29.0 pg (25.0-35.0); Mean Corpuscular Volume 89 fL (80-100); Monocytes # (Auto) 0.4 Thou/mm3 (0.0-0.8); Monocytes % (Auto) 7 % (0-12); Neutrophils # (Auto) 4.0 Thou/mm3 (1.8-7.7); Neutrophils % (Auto) 75 % (37-80); Nucleated Red Blood Cell # 0.00 Thou/mm3 (0.00-0.00); Nucleated Red Blood Cell % 0 /100 WBC (0); Platelet Count 237 Thou/mm3 (140-440); RDW Standard Deviation 41.2 fL (36.4-46.3); Red Blood Count 3.72 Miln/mm3 (4.00-5.20); White Blood Count 5.4 Thou/mm3 (3.6-11.0)
[2025-07-11 10:42] LABS: Collection Type, Urine Voided
[2025-07-11 10:45] VITALS: BP 123/74; PULSE 70; RESP 17; TEMP 36.8; O2SAT 100
[2025-07-11 11:10] LABS: Alanine Aminotransferase < 7 U/L (10-49); Albumin, Serum 4.5 gm/dL (3.4-4.8); Albumin/Globulin Ratio 2.1 (1.2-2.2); Alkaline Phosphatase 60 U/L (46-116); Anion Gap 11 (7-16); Aspartate Amino Transferase 16 U/L (0-34); BUN/Creatinine Ratio 17 Ratio (12-20); Bilirubin,Total 0.5 mg/dL (0.3-1.2); Blood Urea Nitrogen 12 mg/dL (9-23); Calcium 9.9 mg/dL (8.3-10.6); Calcium (Corrected) 9.9 mg/dL (8.5-10.1); Carbon Dioxide 27.9 mMol/L (20.0-31.0); Chloride 101 mMol/L (98-107); Creatinine (Component) 0.7 mg/dL (0.6-1.3); Estimated Creatinine Clearance 64.0 mL/min (>60); Globulin 2.1 gm/dL (2.3-3.5); Glucose 106 mg/dL (74-106); Magnesium 1.2 mg/dL (1.6-2.6); Osmolality,Calculated 279 (275-295); Potassium 3.5 mMol/L (3.4-5.1); Sodium 140 mMol/L (136-145); Total Protein 6.6 gm/dL (5.7-8.2); Troponin I 0.031 ng/mL (0.0-0.045); eGFR > 60 See Note
[2025-07-11 11:15] LABS: Bilirubin,Urine Negative (Negative); Blood,Urine Negative (Negative); Clarity,Urine Clear (Clear/Hazy); Color,Urine Yellow (Lt Yel-Yel); Glucose, Urine Negative (Negative); Ketones,Urine Negative (Negative); Leukocyte Esterase,Urine Positive (Negative); Nitrite,Urine Negative (Negative); PH,Urine 6.0 (5.0-7.0); Protein,Urine 1+ (Neg - Trace); RBC,Urine 4 /hpf (0-3); Specific Gravity,Urine 1.027 (1.001-1.035); Squamous Epithelial Cell,Urine 1 /hpf (0-5); Urobilinogen,Urine Negative mg/dL (0.0-1.0); WBC,Urine 12 /hpf (0-5)
[2025-07-11 11:20] LABS: Culture Indicated,Urine Yes
--- NOTE | 2025-07-11 11:36 | PD.EDSOB ---
ED SOB =RME/HPI General Chief Complaint: Shortness of Breath/Dyspnea Stated Complaint: C/P SOB SINCE THIS MORNING Time Seen by Provider: 07/11/25 09:49 Arrival date/time: 07/11/25 09:35 RME / HPI RME / HPI Narrative: 07/11/25 09:35 This is a 65-year-old female that comes into the emergency room with complaints of shortness of breath. 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 Patient states it also spread to her bone. Patient reports that she was recently diagnosed with pneumonia June 17, 2025. Patient states she was treated. patient reports that she usually wears oxygen at night and usually by the time she wakes up she takes it off. Patient states she is not able to take off her oxygen right now she is very short of breath and also having chest pain. I have greeted and performed a focused initial assessment of this patient. Initial appropriate labs ordered at this time. A comprehensive ED assessment and evaluation of the patient and analysis of all test and completion of medical decision making process will be conducted by additional ED provider. DR. TURCIOS MAIN ED EVALUATION: 65-year-old female with a history of endometrial cancer presents to the Emergency Department accompanied by her sister for progressive shortness of breath worsening over the past week. The patient reports being on 3 liters of supplemental oxygen at home. She denies chest pain, fever, chills, cough, or recent illness. She is not currently undergoing chemotherapy and follows with oncologist Dr. Armando. The patient mentions issues with Medicare approval for enrollment in a cancer trial program related to her treatment. No known social history documented. Related Data Home Medications ?Medication ?Instructions ?Recorded ?Confirmed dexamethasone 4 mg tablet 4 tab PO QMONTH 04/22/22 04/22/22 diphenhydramine HCl 50 mg capsule 50 cap PO QMONTH 04/22/22 04/22/22 (Banophen) famotidine 20 mg tablet 20 tab PO QMONTH 04/22/22 04/22/22 ondansetron HCl 8 mg tablet 8 mg PO QMONTH prior to chemo 04/22/22 04/22/22 treatment Previous Rx's ?Medication ?Instructions ?Recorded lactulose 10 gram/15 mL (15 mL) 20 g (30 mL) PO BID PRN 11/17/22 oral solution constipation #600 mL amoxicillin 875 mg-potassium 1 tab PO BID #14 tabs 06/17/25 clavulanate 125 mg tablet levofloxacin 500 mg tablet 500 mg PO Q24H #5 tabs 07/11/25 Allergies Allergy/AdvReac Type Severity Reaction Status Date / Time Sulfa (Sulfonamide Allergy Verified 07/11/25 09:38 Antibiotics) Review of Systems Review of Systems Systems Reviewed: All systems reviewed, normal except as documented Past Medical History Past Medical History NEUROLOGIC: Positive Seizures CARDIAC: Positive Hypotension RESPIRATORY: Positive Pneumonia GASTROINTESTINAL: Positive Diverticulitis and Hemorrhoids REPRODUCTIVE: Positive Endometriosis and Previous Pregnancies MUSCULOSKELETAL: Positive Arthritis HEMATOLOGIC: Positive Anemia OTHER HISTORY: Positive Hospitalization, Chemotherapy, Radiation Therapy, Chicken Pox, Mumps, Cancer and Lung Cancer Family History FAMILY HISTORY: Positive Family Respiratory Disorders and Family Cancer Surgical History SURGICAL: Positive Hysterectomy, Tubal Ligation and Section Social History SMOKING STATUS: Never smoker SUBSTANCE USE: does not use ALCOHOL: Never ED Exam Narrative Physical exam: GENERAL APPEARANCE: alert and oriented x 4, well-developed, well-nourished VITALS: All vitals were reviewed and the pulse ox is 100% on 2 L/min via a nasal cannula. HEENT: Normocephalic, atraumatic; pupils equal, round, reactive to light; EOMI; mucous membranes pink, moist; oropharynx clear NECK: Supple LUNGS: Coarse rales heard in upper anterior webber, posterior lung webber clear; no wheezes or rhonchi HEART: Regular rate, regular rhythm; normal S1, S2; no murmurs ABDOMEN: non distended; normal BS; soft, no tenderness, no guarding, no rebound; no masses, no organomegaly, no hernia BACK: no CVA tenderness EXTREMITIES: atraumatic; no edema NEUROLOGIC: awake; alert and oriented x4; cranial nerves II-XII grossly intact; no focal sensory or motor deficits PSYCHIATRIC: appropriate mood and affect SKIN: warm, dry, normal color; no rashes Course Quality Measures none Orders Category Date Time Status CT Screening NOW Care 07/11/25 10:32 Completed EKG (ED ONLY) *Do not use* NOW Care 07/11/25 10:[address] angio chest Stat Exams 07/11/25 10:32 Completed EKG (ED Only) Stat Exams 07/11/25 10:04 Ordered XR chest 1V Stat Exams 07/11/25 10:04 Completed BNP [B-Type Natriuretic Peptide] Stat Lab 07/11/25 10:18 Completed CBC Stat Lab 07/11/25 10:18 Completed Comprehensive Metabolic Panel Stat Lab 07/11/25 10:18 Completed Magnesium Stat Lab 07/11/25 10:18 Completed Troponin I Stat Lab 07/11/25 10:18 Completed Urinalysis, C/S if Indicated Stat Lab 07/11/25 10:37 Completed Urine Culture Stat Lab 07/11/25 10:37 Received Levofloxacin [Levaquin] Med 07/11/25 14:29 Discontinued 500 mg PO X1 ONE Magnesium Oxide [Mag-Ox 400] Med 07/11/25 13:05 Discontinued 400 mg PO X1 ONE Vital Signs Vital signs: Vital Signs Temperature 98.8 F 07/11/25 09:48 Pulse Rate 78 07/11/25 09:48 Respiratory Rate 18 07/11/25 09:48 Blood Pressure 103/65 07/11/25 09:48 Pulse Oximetry (%) 98 07/11/25 09:48 Oxygen Delivery Method Room Air 07/11/25 09:48 Shortness of Breath / Dyspnea MDM Narrative MDM Narrative:: IBelinda, am scribing for and in the presence of Dr. Turcios. Patient data External records reviewed:: [facility] previous records Clinical information provided by:: patient and family (sister) Social determinants that could affect healthcare access:: none Patient has the following chronic illnesses:: Endometrial cancer, currently not undergoing chemotherapy and follows with oncologist Dr. Armando. How is presenting disease/condition affected by chronic disease/condition?: exacerbated by Evaluation data The following diagnostics were reviewed and interpreted by me:: lab results, radiology exam(s) and EKG tracing(s) Lab and/or radiology exams considered but not ordered:: none Interpretation Summary: Procedure(s): CT angio chest Accession Number(s): [id number] cc: Pelon Covington MD; Delvis Scott MD; Marika Turcios MD~ Examination: CTA chest with intravenous contrast 2-D reconstructions 3-D reconstructions, vascular Date and time of exam: July 11, 2025, 11:41 a.m., comparison May 07, 2025 INDICATIONS: Cervical carcinoma diagnosis with pulmonary nodular metastatic disease and lymphadenopathy, chest pain shortness of breath today CTDI: vol (mGy) 8.48 DLP: (mGycm) 146 Technique: Multiple axial sections of the thorax have been obtained. 3 mm slice thickness, from below the hemidiaphragms to above the apices of the lungs. Mediastinal and lung density settings have been obtained. 2-D sagittal and coronal reconstructions. 3-D angiographic renderings, 3-D volume renderings, 3D post processing, vascular maximum intensity projections obtained. Contrast administered is 100 cc [id number]. Low dose protocols were performed. One or more of the following dose reduction techniques were used; automated exposure control, adjustment of the mA and/or KV according to patient size, use of iterative reconstruction technique. Findings: Extensive bilateral pulmonary nodular metastatic disease, several nodules increased in size compared to the May 07, 2025 exam No thoracic aortic aneurysmal dilatation Pulmonary artery segments are not enlarged No pulmonary artery emboli Marked progression of metastatic mediastinal lymphadenopathy especially right hilum Pneumonia in both lower lung zones with mild right moderate left pleural fluid Again noted advanced right hydronephrosis, right kidney partly visualized Gallbladder is not distended No pancreatic mass Prominent osteopenia with kyphosis dorsal spine IMPRESSION: Negative for pulmonary artery emboli Progression of metastatic pulmonary nodular disease and mediastinal lymphadenopathy Bibasilar pneumonia with small right moderate left pleural effusion Dictated By: Delvis Scott MD Procedure(s): XR chest 1V Accession Number(s): [id number] cc: Pelon Covington MD; Delvis Scott MD; Jud Iverson NP~ EXAMINATION: PA chest single view TECHNIQUE: Upright PA chest single view Date and time: July 11, 2025, 10:19 a.m., comparison 06/17/2025 INDICATIONS: Shortness of breath today, diagnosis endometrial cancer FINDINGS: Extensive soft and nodular parenchymal disease throughout both lungs with significant pleural disease lower left hemithorax Please see the PET CT scan report April 06, 2025 indicating pulmonary nodular metastatic disease Pneumonia left base Right internal jugular Port-A-Cath tip satisfactory position IMPRESSION: Extensive pulmonary nodular metastatic disease Pneumonia left base Dictated By: Delvis Scott MD Medications / Prescriptions Medications or Prescriptions considered but not ordered:: none Medication administrations:: Medication Administration History Discontinued Medications Levofloxacin (Levofloxacin 250 Mg Tablet) 500 mg PO X1 ONE Stop: 07/11/25 14:30 Last Admin: 07/11/25 14:56 Dose: 500 mg Documented By: BY Magnesium Oxide (Magnesium Oxide 400 Mg Tablet) 400 mg PO X1 ONE Stop: 07/11/25 13:06 Last Admin: 07/11/25 13:12 Dose: 400 mg Documented By: BY see above if any Consultations Consultation(s) initiated? (list below): No Diagnosis Shortness of Breath Differential Diagnosis: other (Malignancy-related pleural effusion, pneumonia, and COPD exacerbation.) Most likely diagnosis given after review of the tests above:: Pneumonia Cancer with pulmonary metastases Dyspnea Admission Indicated Admission indicated?: not indicated Admission Request Was there a request for admission?: No Disposition Plan Disposition Plan: Discharge Discharge Attestation Discharge Attestation: The patient and all family members were given an opportunity to ask questions and understood the discharge instructions. Discharge instructions specifically effects, indications for sooner follow up or return to the emergency department, and the expected course of current diagnosis. Patient condition: Stable Discharge Plan Plan Patient Disposition: HOME (Self Care) Prescriptions/Referrals Prescriptions/Med Rec: New levofloxacin 500 mg tablet 500 mg PO Q24H Qty: 5 0RF No Action famotidine 20 mg tablet 20 tab PO QMONTH Patient Comments: TAKE 1 TABLET BY MOUTH 12 HOURS AND 1 TABLET 6 HOURS BEFORE CHEMO Rx Instructions: taken prior to chemo treatment. diphenhydramine HCl [Banophen] 50 mg capsule 50 cap PO QMONTH Patient Comments: TAKE 1 CAPSULE BY MOUTH 12 HOURS BEFORE AND 1 CAPSULE 6 HOURS BEFORE CHEMO Rx Instructions: taken prior to chemo treatment. ondansetron HCl 8 mg tablet 8 mg PO QMONTH Patient Comments: TAKE 1 TABLET BY MOUTH THREE TIMES A DAY NEEDED FOR NAUSEA Rx Instructions: taken prior to chemo treatment. dexamethasone 4 mg tablet 4 tab PO QMONTH Patient Comments: TAKE 5 TABLETS BY MOUTH 12 HOURS BEFORE AND 5 TABLETS 6 HOURS BEFORE CHEMO Rx Instructions: taken prior to chemo treatment. lactulose 10 gram/15 mL (15 mL) solution 20 g PO BID PRN (Reason: constipation) Qty: 600 0RF amoxicillin-pot clavulanate 875-125 mg tablet 1 tab PO BID Qty: 14 0RF Referrals: Pelon Covington MD [Primary Care Provider, Internal Medicine] - In 1 week Problem List Clinical Impression: Pneumonia, Cancer with pulmonary metastases, Dyspnea Patient/Caregiver Discharge Instructions Education Materials: ED Shortness of Breath (Dyspnea), ED Pneumonia (Adult) Print Language: Romansh Stand Alone Forms: Anna Award Info., Patient Portal Info Letter
[2025-07-11 11:45] LABS: B-Type Natriuretic Peptide < 20 pg/mL (0-100)
[2025-07-11 12:13] VITALS: BP 129/80; PULSE 74; RESP 19; TEMP 36.9; O2SAT 100
[2025-07-11] MEDS: MAGNESIUM OXIDE 400 MG TABLET PO (13:12)
[2025-07-11] MEDS: LEVOFLOXACIN 250 MG TABLET 500 MG PO (14:56)
[2025-07-11 14:57] VITALS: BP 122/81; PULSE 74; RESP 191; TEMP 36.8
== END 2025-07-11 15:11 | disposition home or self-care (01) ==
PROVIDERS: Nurse Practitioner Family; Emergency Provider Emergency Medicine; PCP Student in an Organized Health Care Education/Training Program
DX: J18.9 Pneumonia, unspecified organism (principal); C78.00 Secondary malignant neoplasm of unspecified lung; C55 Malignant neoplasm of uterus, part unspecified
CPT/HCPCS: 36415; 71045; 71275; 80053; 81001; 83735; 83880; 84484; 85025; 87086; 93005; 99283; A4649; Q9967; A9270

== ENCOUNTER → 2025-07-13 | Outpatient (CLI) | payer MEDICAID, SELFPAY ==
--- NOTE | 2025-07-13 11:00 | XR_ITS ---
EXAMINATION: PET/CT FUSION SKULL TO THIGH EXAM DATE AND TIME: July 13, 2025, 1248 hours, comparison CT chest abdomen pelvis May 07, 2025, PET/CT scan April 06, 2025, CT chest April 14, 2025 INDICATIONS: Diagnosis uterine cancer, post treatment restaging CTDI:vol (mGy) 2.71 DLP: (mGycm) 213.71 PROCEDURE: 11.9 mCi FDG was administered intravenously To allow for distribution and uptake of radiotracer, the patient was allowed to rest quietly in a shielded room. Imaging was performed on an integrated 16-slice PET/CT scanner, with scanning from the skull base to the mid thigh. Serum blood glucose at the time of the injection was measured 115 mg/dL. CT scanning was performed without oral or intravenous contrast material. FINDINGS: Head and Neck: There is no parul hypermetabolism in the neck. The visualized portions of the brain are normal in appearance on CT. Chest: Hypermetabolic high right paratracheal lymph node measures 18 mm compared to 14 mm on April 06, 2025 New 12 mm hypermetabolic hide left retroaortic lymphadenopathy axial image 64 Subcarinal hypermetabolic lymphadenopathy measures 27 mm compared to 24 mm on April 06, 2025 Right hilar lymphadenopathy measures 25 mm compared to 20 mm on April 06, 2025 Left hilar lymphadenopathy is stable compared with April 06, 2025 Progression of pulmonary nodular metastatic disease, all existing pulmonary nodules mass are larger, for instance left upper lobe pulmonary nodule 14 mm compared to 12 mm on April 06, 2025, right upper lobe pulmonary nodule 13 mm compared to 7 mm on April 06, 2025 New pulmonary nodules Left lower lobe pulmonary nodule 20 mm compared to 6 mm on April 06, 2025 Moderate to large left pleural effusion compared to mild left pleural effusion on April 06, 2025 New 14 mm hypermetabolic lymphadenopathy adjacent to the cardiac apex compared to April 06, 2025 The left pleural fluid is partially hypermetabolic Abdomen and Pelvis: There is no parul hypermetabolism in retroperitoneal or pelvic chains. The spleen is normal in size and FDG avidity. Large right renal cyst Right para-aortic lymphadenopathy measures 36 mm compared to 31 mm on April 06, 2025 New 18 mm peritoneal hypermetabolic mass anterior pelvis image 193 14 mm hypermetabolic focus in the rectosigmoid, sagittal image 48, clinical correlation advised Musculoskeletal: Marrow uptake is within normal range. IMPRESSION: Compared with PET/CT scan April 06, 2025: Progression of pulmonary nodular metastatic disease Progression of mediastinal lymphadenopathy Increased size of likely malignant left pleural effusion Enlarging right para-aortic lymphadenopathy New 18 mm peritoneal hypermetabolic mass in the anterior pelvis 14 mm hypermetabolic focus in the rectosigmoid, clinical correlation advised
== END | disposition home or self-care (01) ==
PROVIDERS: Referring Provider Internal Medicine Hematology & Oncology; Visit Provider Internal Medicine Hematology & Oncology
DX: R59.0 Localized enlarged lymph nodes (principal); R19.00 Intra-abdominal and pelvic swelling, mass and lump, unspecified site; C78.00 Secondary malignant neoplasm of unspecified lung; C54.9 Malignant neoplasm of corpus uteri, unspecified; C79.51 Secondary malignant neoplasm of bone; C96.A Histiocytic sarcoma
CPT/HCPCS: 78815; A9552

== ENCOUNTER 2025-08-05 13:10 | Outpatient (RCR) | payer MEDICAID, SELFPAY ==
--- NOTE | 2025-08-05 14:16 | CTCFLWUP_ITS ---
[facility] [address] [place], [place] [address] FOLLOW-UP NOTE Date: 08/05/2025 MR#: [id number] Name: JHONATAN KRAMER : 1960 Dx: C55 Malignant neoplasm of uterus, part unspecified Identification. Patient with stage IV sarcoma uterine status post hysterectomy post radiation and various systemic agents. Patient has been receiving CarboTaxol Doxil nivolumab in [place] but due to insurance issues apparently this could not be continued. Most recent PET scan in June shows progression of lesions in lung and elsewhere. Patient is here for better pain management. Was taking Hotevilla 10 every 6 along with ibuprofen with only partial relief of symptoms. I elected to add 30 mg morphine ER and patient is due to see Dr. Salazar next month. Electronically signed by: Piyush Whiting M.D. 08/05/2025 2:14 PM
== END 2025-08-22 23:59 | disposition home or self-care (01) ==
LOC: SCTC 13:10
PROVIDERS: PCP Internal Medicine; Referring Provider Internal Medicine; Visit Provider Radiology Therapeutic Radiology
DX: C54.1 Malignant neoplasm of endometrium (principal); Z90.710 Acquired absence of both cervix and uterus
CPT/HCPCS: 99213; G0463